=== PATIENT | male | born 1950 | race Caucasian/White ===

== ENCOUNTER → 2018-08-18 10:50 | Outpatient (CLI) | payer MEDICARE, OTHER, SELFPAY ==
[2018-08-18 12:57] LABS: Prolactin 45.6 ng/mL (3.7-17.9)
[2018-08-18 13:11] LABS: Thyroid Stimulating Hormone 1.35 uIU/mL (0.47-4.68)
== END ==
PROVIDERS: Family Provider Family Medicine; PCP Family Medicine; Visit Provider Internal Medicine Endocrinology, Diabetes & Metabolism
DX: E22.1 Hyperprolactinemia (principal); E03.9 Hypothyroidism, unspecified
CPT/HCPCS: 36415; 84146; 84443

== ENCOUNTER → 2019-04-03 15:42 | Outpatient (CLI) | payer MEDICARE, OTHER, SELFPAY ==
[2019-04-03 16:41] LABS: Prolactin 38.9 ng/mL (3.7-17.9)
[2019-04-03 16:55] LABS: Thyroid Stimulating Hormone 1.73 uIU/mL (0.47-4.68)
== END ==
PROVIDERS: Family Provider Family Medicine; PCP Family Medicine; Visit Provider Internal Medicine Endocrinology, Diabetes & Metabolism
DX: D35.2 Benign neoplasm of pituitary gland (principal); E22.1 Hyperprolactinemia; E03.9 Hypothyroidism, unspecified
CPT/HCPCS: 36415; 84146; 84443

== ENCOUNTER → 2019-06-29 09:25 | Outpatient (CLI) | payer MEDICARE, OTHER, SELFPAY ==
[2019-06-29 12:07] LABS: Add Manual Diff / Slide Review NO; Basophils Absolute Auto 0 /uL (0-100); Basophils Percent Auto 0.5 % (0-2); Eosinophils Absolute Auto 200 /uL (0-450); Hematocrit 44.6 % (41-53); Hemoglobin 15.1 g/dL (13.5-17.5); Lymphocytes Absolute Auto 1300 /uL (1100-4500); Lymphocytes Percent Auto 20.5 % (25-40); Mean Corpuscular HGB Conc 33.8 % (30-36); Mean Corpuscular Hemoglobin 30.4 PG (26-34); Mean Corpuscular Volume 89.9 fL (80-100); Monocytes Absolute Auto 400 /uL (0-900); Monocytes Percent Auto 6.5 % (3-14); Neutrophils Absolute Auto 4400 /uL (1500-7000); Neutrophils Percent Auto 69.5 % (50-75); Platelet Count 154 X10^3/uL (150-400); Red Blood Cell Count 4.97 X10^6/uL (4.5-5.9); Red Cell Distribution Width 13.1 % (11.6-14.8); White Blood Cell Count 6.3 X10^3/uL (4.5-11.0)
[2019-06-29 12:50] LABS: Alanine Aminotransferase 22 IU/L (21-72); Albumin 4.4 g/dL (3.5-5.0); Albumin Globulin Ratio 1.6 (1.0-2.8); Alkaline Phosphatase 37 U/L (38-126); Aspartate Aminotransferase 25 IU/L (17-59); Bilirubin Total 0.5 mg/dL (0.2-1.3); Blood Urea Nitrogen 17 mg/dL (9-20); Calcium 9.5 mg/dL (8.4-10.2); Carbon Dioxide 30 mmol/L (22-32); Chloride 104 mmol/L (98-107); Cholesterol 153 mg/dL (140-199); Estimated Glomerular Filt Rate > 60.0 mL/min (>60); Globulin 2.8 g/dL (1.7-4.1); Glucose 96 mg/dL (80-110); HDL Cholesterol 35 mg/dL (40-60); LDL Cholesterol Calculated 94 mg/dL (<100); Potassium 4.6 mmol/L (3.4-5.1); Sodium 141 mmol/L (137-145); Total Protein 7.2 g/dL (6.3-8.2); Triglycerides 121 mg/dL (35-150)
[2019-06-29 13:08] LABS: TSH w/ Reflex to FT4 2.26 uIU/mL (0.47-4.68)
[2019-06-29 13:24] LABS: HEMOLYSIS < 15 (0-50); Prostate Specific Antigen Scrn 0.447 ng/mL (0.1-4.0)
== END ==
PROVIDERS: PCP Family Medicine; Visit Provider Family Medicine
DX: E03.9 Hypothyroidism, unspecified (principal); E78.2 Mixed hyperlipidemia; Z12.5 Encounter for screening for malignant neoplasm of prostate
CPT/HCPCS: 36415; 80053; 80061; 84443; 85025; G0103

== ENCOUNTER → 2019-09-15 11:07 | Outpatient (CLI) | payer MEDICARE, OTHER, SELFPAY ==
[2019-09-15 12:22] LABS: Prolactin 45.2 ng/mL (3.7-17.9)
[2019-09-15 12:38] LABS: Thyroid Stimulating Hormone 1.68 uIU/mL (0.47-4.68)
== END ==
PROVIDERS: PCP Family Medicine; Visit Provider Internal Medicine Endocrinology, Diabetes & Metabolism
DX: E22.1 Hyperprolactinemia (principal); E03.9 Hypothyroidism, unspecified
CPT/HCPCS: 36415; 84146; 84443

== ENCOUNTER → 2019-09-16 16:03 | Outpatient (CLI) | payer MEDICARE, OTHER, SELFPAY | PROVIDERS: PCP Family Medicine; Visit Provider Physician Assistant | DX: R30.0 Dysuria (principal) | CPT/HCPCS: 87086 ==

== ENCOUNTER → 2020-03-15 09:11 | Outpatient (CLI) | payer MEDICARE, OTHER, SELFPAY ==
--- NOTE | 2020-03-15 09:14 | DI.RAD.S_ITS ---
PROCEDURE: XR LUMBAR SPINE 2-3V INDICATIONS: low back pain TECHNIQUE: 3 views of the lumbar spine were acquired. COMPARISON: None. FINDINGS: Bones: 5 [id number] vertebrae are present. Minor rightward rotoscoliosis. AP alignment is normal. Moderate to marked facet arthropathy from L4-S1 without subluxation, with bony foraminal narrowing.. No vertebral body compression fractures. No suspicious bony lesions. Soft tissues: Overlying bowel gas pattern is normal. No suspicious soft tissue calcifications. IMPRESSION: 1. Facet arthropathy results in probable bony foraminal narrowing at the lower lumbar levels. Consider MRI. Dictated by: Carolyn Mccall M.D. on 03/15/2020 at 10:16 Approved by: Carolyn Mccall M.D. on 03/15/2020 at 10:19
== END ==
PROVIDERS: PCP Family Medicine; Referring Provider Family Medicine; Visit Provider Family Medicine
DX: M47.26 Other spondylosis with radiculopathy, lumbar region (principal); M47.27 Other spondylosis with radiculopathy, lumbosacral region
CPT/HCPCS: 72100

== ENCOUNTER → 2020-04-23 10:21 | Outpatient (CLI) | payer MEDICARE, OTHER, SELFPAY ==
[2020-04-23 12:37] LABS: Prolactin 39.7 ng/mL (3.7-17.9)
[2020-04-23 12:53] LABS: Thyroid Stimulating Hormone 1.22 uIU/mL (0.47-4.68)
== END ==
PROVIDERS: PCP Family Medicine; Referring Provider Internal Medicine Endocrinology, Diabetes & Metabolism; Visit Provider Internal Medicine Endocrinology, Diabetes & Metabolism
DX: E22.1 Hyperprolactinemia (principal); E03.9 Hypothyroidism, unspecified
CPT/HCPCS: 36415; 84146; 84443

== ENCOUNTER → 2020-05-02 11:15 | Outpatient (CLI) | payer MEDICARE, OTHER, SELFPAY ==
--- NOTE | 2020-05-02 11:17 | DI.RAD.S_ITS ---
PROCEDURE: XR HIP W PEL IF DONE LT 2V INDICATIONS: Left hip pain TECHNIQUE: AP pelvis with lateral view(s) of the left hip(s). COMPARISON: None. FINDINGS: Bones: No fracture. Multilevel lumbar spondylosis and facet disease. Moderate right hip joint degeneration. Mild left hip joint degeneration. Soft tissues: The visualized bowel gas pattern is normal. No suspicious soft tissue calcifications. Presumed bilateral pelvic phleboliths. IMPRESSION: Bilateral hip joint degeneration although right slightly greater than left. Lower lumbar spondylosis Dictated by: Hector Velez M.D. on 05/02/2020 at 15:48 Approved by: Hector Velez M.D. on 05/02/2020 at 15:50
== END ==
PROVIDERS: PCP Family Medicine; Referring Provider Family Medicine; Visit Provider Family Medicine
DX: M25.552 Pain in left hip (principal); M16.0 Bilateral primary osteoarthritis of hip; M47.816 Spondylosis without myelopathy or radiculopathy, lumbar region
CPT/HCPCS: 73502

== ENCOUNTER → 2020-05-04 17:26 | Outpatient (CLI) | payer MEDICARE, OTHER, SELFPAY ==
--- NOTE | 2020-05-04 17:29 | DI.MRI.S_ITS ---
PROCEDURE: MR LUMBAR SPINE WO CON INDICATIONS: LBP with L radicular pain TECHNIQUE: Noncontrast sagittal T1 spin echo and T2 fast echo, sagittal STIR, axial T1 and T2 fast spin echo through the lumbar spine. In cases with scoliosis, additional coronal T2 fast spin echo may be performed. COMPARISON: None. FINDINGS: Image quality: Excellent. Alignment and Curvature: There is trace anterolisthesis of L4 on L5. Bone Marrow: Marrow is of normal overall signal. Increased T1 and T2 signal is present within L5 most suggestive of hemangioma. Minimal reactive endplate changes are present at L5-S1. No acute vertebral body compression fractures. Spinal Cord: Conus medullaris terminates at the L1 level. Visualized cord demonstrates normal signal and size. Paraspinous Soft Tissues: No paravertebral masses. Bilateral renal cysts as well as T2 hyperintensity within the liver also suggestive of cyst. Discs: [id number] desiccation is present throughout the lumbar spine most severe at L4-5, L5-S1. L1-L2: No disc bulge, spinal stenosis or foraminal narrowing. L2-L3: Minimal disc bulge without spinal stenosis. Minimal left foraminal narrowing. Mild facet and ligamentum flavum hypertrophy. L3-L4: Minimal disc bulge without spinal stenosis. Moderate bilateral foraminal narrowing with facet and ligamentum flavum hypertrophy. L4-L5: Mild disc bulge without spinal stenosis. Moderate to severe left and moderate right foraminal narrowing with facet and ligamentum flavum hypertrophy. Facet and ligamentum flavum hypertrophy are present. L5-S1: Mild disc bulge including a disc osteophyte right lateral component. Moderate right foraminal narrowing with facet and ligamentum flavum hypertrophy. IMPRESSION: 1. Multilevel degenerative changes. 2. Multilevel foraminal narrowing most notable at L4-5 secondary to facet arthropathy. Dictated by: Heidy Light M.D. on 05/05/2020 at 9:42 Approved by: Heidy Light M.D. on 05/05/2020 at 9:53
== END ==
PROVIDERS: PCP Family Medicine; Referring Provider Family Medicine; Visit Provider Family Medicine
DX: M47.26 Other spondylosis with radiculopathy, lumbar region (principal); M48.061 Spinal stenosis, lumbar region without neurogenic claudication; M48.07 Spinal stenosis, lumbosacral region
CPT/HCPCS: 72148

== ENCOUNTER → 2020-05-09 06:53 | Outpatient (CLI) | payer MEDICARE, OTHER, SELFPAY ==
--- NOTE | 2020-05-09 07:14 | DI.ECHO.S_ITS ---
Echocardiogram Report + + :Name: SIGRID GOODWIN Study Date: 05/09/2020 Height: 71 in : :[facility] Weight: 185 lb : : Gender: Male BSA: 2.0 m2 : :: 1950 Age: 69 yrs BP: 128/80 mmHg: :Reason For Study: MITRAL INSUFFICIENCY : :Ordering Physician: Dr. Crum : :Irena Performed By: Kristi Duenas : :Referring: MARY YUN : + + Interpretation Summary Normal left ventricle size with ejection fraction 60-65%. Mildly dilated left atrium. Mild mitral regurgitation. Comparison is made with the echocardiogram of 08/20/2017, there has been no significant change. Procedure: A two-dimensional transthoracic echocardiogram with color flow and Doppler was performed. The study quality was technically adequate. Comparison is made with the echocardiogram of 08/20/2017. The patient was in sinus bradycardia with heart rates between 52-55 bpm during the exam. Left Ventricle: The left ventricle is normal in size and wall thickness. The ejection fraction is estimated to be 60-65%. There are no focal wall motion abnormalities. Diastolic parameters suggest probable normal left ventricular diastolic function and normal filling pressures. Right Ventricle: The right ventricle is normal in size and function. Atria: The left atrium is mildly dilated. Right atrial size is normal. There is no Doppler evidence for an interatrial shunt. Mitral Valve: The mitral valve is normal in structure and function. There is mild mitral regurgitation. Aortic Valve: The aortic valve is trileaflet. The aortic valve opens well. There is no aortic valve stenosis. There is trace aortic regurgitation. Tricuspid Valve: The tricuspid valve is normal in structure and function. There is trace tricuspid regurgitation. The right ventricular systolic pressure is estimated to be at least 29 mmHg based on an estimated right atrial pressure of 3 mm Hg. Pulmonic Valve: The pulmonic valve leaflets are thin and pliable; valve motion is normal. There is a trace or physiologic amount of pulmonic regurgitation. Great Vessels: The aortic root is normal size. The dimensions of the ascending aorta are normal. The IVC is of normal diameter and collapses greater than 50% with a sniff. This suggests a low right atrial pressure of 3 mm Hg. Pericardium/ Pleura There is no pericardial effusion. There is no pleural effusion. MMode/2D Measurements & Calculations LVIDd: 5.2 cm LVOT diam: 2.0 cm LVIDs: 3.3 cm Ao root diam: 2.9 cm FS: 35.7 % asc Aorta Diam: 3.3 cm EPSS: 0.41 cm Ao Arch Diam (Prox Trans): 3.2 cm IVSd: 1.0 cm LVPWd: 1.2 cm LV moulton. diameter/BSA (cm/m^2): 2.5 LV sys. diameter/BSA (cm/m^2): 1.6 LA A2 area: 23.9 cm2 RA long axis: 5.6 cm LA A4 area: 21.7 cm2 RA area: 19.6 cm2 LA length (vol): 5.5 cm RA vol: 58.3 ml LA vol: 80.5 ml RA : 28.6 ml/m2 LA vol index: 39.4 ml/m2 IVC diam: 1.1 cm RVD1 (basal): 3.2 cm TAPSE: 2.6 cm Doppler Measurements & Calculations Ao V2 max: 127.1 cm/sec LVOT Max Nate: 120.7 cm/sec Ao V2 mean: 78.4 cm/sec LV V1 max P.8 mmHg Ao max P.5 mmHg LV V1 VTI: 28.4 cm Ao mean P.9 mmHg SHABBIR(I,D): 3.4 cm2 Ao V2 VTI: 27.4 cm SHABBIR(V,D): 3.1 cm2 sev ratio: 1.0 SHABBIR indexed to BSA (cm^2/m^2): 1.7 MV E max nate: 55.5 cm/sec TR max nate: 253.3 cm/sec MV A max nate: 48.8 cm/sec TR max P.7 mmHg MV E/A: 1.1 PA V2 max: 93.1 cm/sec Med Peak E' Nate: 8.9 cm/sec PA V2 mean: 65.6 cm/sec E/E' med: 6.2 PA mean P.9 mmHg Lat Peak E' Nate: 8.3 cm/sec PA pr(Accel): 27.6 mmHg E/E' lat: 6.7 E/e' average: 6.4 MV dec time: 0.26 sec SV(LVOT): 93.1 ml Electronically signed by: Sebastián Redding on Reading Physician:05/09/2020 09:53 AM
== END ==
PROVIDERS: PCP Family Medicine; Referring Provider Internal Medicine Endocrinology, Diabetes & Metabolism; Visit Provider Internal Medicine Endocrinology, Diabetes & Metabolism
DX: I34.0 Nonrheumatic mitral (valve) insufficiency (principal)
CPT/HCPCS: 93306

== ENCOUNTER → 2020-06-24 08:36 | Outpatient (CLI) | payer MEDICARE, OTHER, SELFPAY ==
[2020-06-24 09:50] LABS: Add Manual Diff / Slide Review NO; Basophils Absolute Auto 0 /uL (0-100); Basophils Percent Auto 0.2 % (0-2); Eosinophils Absolute Auto 200 /uL (0-450); Eosinophils Percent Auto 2.4 % (2-4); Hemoglobin 14.9 g/dL (13.5-17.5); Lymphocytes Absolute Auto 1500 /uL (1100-4500); Lymphocytes Percent Auto 22.9 % (25-40); Mean Corpuscular HGB Conc 33.9 % (30-36); Mean Corpuscular Hemoglobin 30.5 PG (26-34); Mean Corpuscular Volume 89.8 fL (80-100); Monocytes Absolute Auto 500 /uL (0-900); Monocytes Percent Auto 8.1 % (3-14); Neutrophils Absolute Auto 4300 /uL (1500-7000); Neutrophils Percent Auto 66.4 % (50-75); Platelet Count 191 X10^3/uL (150-400); Red Cell Distribution Width 13.4 % (11.6-14.8); White Blood Cell Count 6.4 X10^3/uL (4.5-11.0)
[2020-06-24 10:15] LABS: Alanine Aminotransferase 21 IU/L (<50); Albumin 4.2 g/dL (3.5-5.0); Albumin Globulin Ratio 1.6 (1.0-2.8); Alkaline Phosphatase 34 U/L (38-126); Aspartate Aminotransferase 22 IU/L (17-59); BUN Creatinine Ratio 21.8 (6-22); Bilirubin Total 0.6 mg/dL (0.2-1.3); Blood Urea Nitrogen 19 mg/dL (9-20); Calcium 9.3 mg/dL (8.4-10.2); Carbon Dioxide 28 mmol/L (22-32); Chloride 107 mmol/L (98-107); Cholesterol 140 mg/dL (140-199); Estimated Glomerular Filt Rate > 60.0 mL/min (>60); Globulin 2.7 g/dL (1.7-4.1); Glucose 106 mg/dL (80-110); HDL Cholesterol 43 mg/dL (40-60); HEMOLYSIS < 15 (0-50); LDL Cholesterol Calculated 82 mg/dL (<100); Potassium 4.2 mmol/L (3.4-5.1); Sodium 139 mmol/L (137-145); Total Protein 6.9 g/dL (6.3-8.2); Triglycerides 76 mg/dL (35-150)
== END ==
PROVIDERS: PCP Family Medicine; Referring Provider Family Medicine; Visit Provider Family Medicine
DX: F34.1 Dysthymic disorder (principal)
CPT/HCPCS: 36415; 80053; 80061; 85025

== ENCOUNTER → 2021-06-12 09:48 | Outpatient (CLI) | payer MEDICARE, OTHER, SELFPAY ==
[2021-06-12 12:32] LABS: Prolactin 47.8 ng/mL (3.7-17.9)
[2021-06-12 12:39] LABS: Thyroid Stimulating Hormone 0.532 uIU/mL (0.47-4.68)
== END ==
PROVIDERS: PCP Family Medicine; Referring Provider Internal Medicine Endocrinology, Diabetes & Metabolism; Visit Provider Internal Medicine Endocrinology, Diabetes & Metabolism
DX: E22.1 Hyperprolactinemia (principal); E03.9 Hypothyroidism, unspecified
CPT/HCPCS: 36415; 84146; 84443

== ENCOUNTER → 2021-08-08 07:42 | Outpatient (CLI) | payer MEDICARE, OTHER, SELFPAY ==
[2021-08-08 08:29] LABS: Add Manual Diff / Slide Review NO; Basophils Absolute Auto 0 /uL (0-100); Basophils Percent Auto 0.2 % (0-2); Eosinophils Absolute Auto 300 /uL (0-450); Eosinophils Percent Auto 4.3 % (2-4); Hematocrit 42.2 % (41-53); Hemoglobin 14.5 g/dL (13.5-17.5); Lymphocytes Absolute Auto 1400 /uL (1100-4500); Lymphocytes Percent Auto 20.9 % (25-40); Mean Corpuscular HGB Conc 34.5 % (30-36); Mean Corpuscular Hemoglobin 30.6 PG (26-34); Mean Corpuscular Volume 88.7 fL (80-100); Monocytes Absolute Auto 600 /uL (0-900); Monocytes Percent Auto 8.1 % (3-14); Neutrophils Absolute Auto 4500 /uL (1500-7000); Neutrophils Percent Auto 66.5 % (50-75); Platelet Count 158 X10^3/uL (150-400); Red Blood Cell Count 4.75 X10^6/uL (4.5-5.9); Red Cell Distribution Width 13.8 % (11.6-14.8); White Blood Cell Count 6.8 X10^3/uL (4.5-11.0)
[2021-08-08 08:54] LABS: Alanine Aminotransferase 29 IU/L (<50); Albumin 4.4 g/dL (3.5-5.0); Albumin Globulin Ratio 1.6 (1.0-2.8); Alkaline Phosphatase 36 U/L (38-126); Aspartate Aminotransferase 29 IU/L (17-59); BUN Creatinine Ratio 15.6 (6-22); Blood Urea Nitrogen 14 mg/dL (9-20); Calcium 9.6 mg/dL (8.4-10.2); Carbon Dioxide 28 mmol/L (22-32); Chloride 104 mmol/L (98-107); Cholesterol 179 mg/dL (140-199); Estimated Glomerular Filt Rate > 60.0 mL/min (>60); Globulin 2.8 g/dL (1.7-4.1); Glucose 108 mg/dL (80-110); HDL Cholesterol 53 mg/dL (40-60); HEMOLYSIS < 15 (0-50); LDL Cholesterol Calculated 105 mg/dL (<100); Potassium 4.3 mmol/L (3.4-5.1); Sodium 139 mmol/L (137-145); Total Protein 7.2 g/dL (6.3-8.2); Triglycerides 104 mg/dL (35-150)
[2021-08-08 09:06] LABS: Prolactin 48.8 ng/mL (3.7-17.9)
[2021-08-08 09:20] LABS: Prostate Specific Antigen Scrn 0.471 ng/mL (0.1-4.0)
[2021-08-08 09:27] LABS: Thyroid Stimulating Hormone 2.63 uIU/mL (0.47-4.68)
== END ==
PROVIDERS: PCP Family Medicine; Referring Provider Family Medicine; Visit Provider Family Medicine
DX: D35.2 Benign neoplasm of pituitary gland (principal); E78.2 Mixed hyperlipidemia; Z12.5 Encounter for screening for malignant neoplasm of prostate; E03.9 Hypothyroidism, unspecified
CPT/HCPCS: 36415; 80053; 80061; 84146; 84443; 85025; G0103

== ENCOUNTER → 2021-11-24 10:38 | Outpatient (CLI) | payer MEDICARE, OTHER, SELFPAY ==
--- NOTE | 2021-11-24 10:39 | DI.RAD.S_ITS ---
PROCEDURE: XR RIBS LT MIN 3V W CXR1V INDICATIONS: rib trauma TECHNIQUE: 3 views of the left ribs were acquired, along with a single view chest. COMPARISON: None. FINDINGS: Surgical changes and devices: None. Bones and chest wall: No fractures or dislocations. No suspicious bony lesions. Overlying soft tissues appear unremarkable. Lungs and pleura: No pleural effusions or pneumothorax. Lungs appear clear. Mediastinum: Mediastinal contours appear normal. Heart size is normal. IMPRESSION: No visualized acute fracture or dislocation. However, if clinical concern and/or pain persist, short interval imaging followup in 7-10 days is recommended, as occult injury cannot be definitively excluded. Dictated by: Heidy Light M.D. on 11/24/2021 at 11:01 Approved by: Heidy Light M.D. on 11/24/2021 at 11:02
== END ==
PROVIDERS: PCP Family Medicine; Referring Provider Nurse Practitioner Family; Visit Provider Nurse Practitioner Family
DX: R07.81 Pleurodynia (principal)
CPT/HCPCS: 71101

== ENCOUNTER → 2022-01-16 09:20 | Outpatient (CLI) | payer MEDICARE, OTHER, SELFPAY ==
[2022-01-16 11:18] LABS: Prolactin 54.2 ng/mL (3.7-17.9)
[2022-01-16 12:24] LABS: Thyroid Stimulating Hormone 0.681 uIU/mL (0.47-4.68)
== END ==
PROVIDERS: PCP Family Medicine; Referring Provider Internal Medicine Endocrinology, Diabetes & Metabolism; Visit Provider Internal Medicine Endocrinology, Diabetes & Metabolism
DX: E03.9 Hypothyroidism, unspecified (principal); D35.2 Benign neoplasm of pituitary gland; E22.1 Hyperprolactinemia
CPT/HCPCS: 36415; 84146; 84443

== ENCOUNTER → 2022-06-12 08:55 | Outpatient (CLI) | payer MEDICARE, OTHER, SELFPAY ==
--- NOTE | 2022-06-12 08:57 | DI.RAD.S_ITS ---
PROCEDURE: XR KNEE LT 3V INDICATIONS: knee pain TECHNIQUE: 3 views of the knee were acquired. COMPARISON: None. FINDINGS: Bones: No fractures or dislocations. No suspicious bony lesions. Soft tissues: Moderate joint effusion. No suspicious soft tissue calcifications. IMPRESSION: Moderate effusion. No visualized acute fracture or dislocation. However, if clinical concern and/or pain persist, short interval imaging followup in 7-10 days is recommended, as occult injury cannot be definitively excluded. Dictated by: Heidy Light M.D. on 06/12/2022 at 9:22 Approved by: Heidy Light M.D. on 06/12/2022 at 9:22
== END ==
PROVIDERS: PCP Family Medicine; Referring Provider Student in an Organized Health Care Education/Training Program; Visit Provider Student in an Organized Health Care Education/Training Program
DX: M25.562 Pain in left knee (principal); M25.462 Effusion, left knee
CPT/HCPCS: 73562

== ENCOUNTER → 2022-07-19 14:49 | Outpatient (CLI) | payer MEDICARE, OTHER, SELFPAY ==
[2022-07-19 18:10] LABS: Prolactin 59.4 ng/mL (3.7-17.9)
[2022-07-19 18:17] LABS: Thyroid Stimulating Hormone 2.22 uIU/mL (0.47-4.68)
== END ==
PROVIDERS: PCP Family Medicine; Referring Provider Internal Medicine Endocrinology, Diabetes & Metabolism; Visit Provider Internal Medicine Endocrinology, Diabetes & Metabolism
DX: D35.2 Benign neoplasm of pituitary gland (principal); E03.9 Hypothyroidism, unspecified
CPT/HCPCS: 36415; 84146; 84443

== ENCOUNTER → 2022-07-21 09:34 | Outpatient (CLI) | payer MEDICARE, OTHER, SELFPAY ==
[2022-07-21 10:23] LABS: Influenza A - CEPHEID Flu A NEGATIVE (NEGATIVE); Influenza B - CEPHEID Flu B NEGATIVE (NEGATIVE); Respiratory Syncytial Virus Negative (Negative)
[2022-07-21 10:24] LABS: COVID-19 CEPHEID 4-PLEX PCR Negative (Negative)
== END ==
PROVIDERS: PCP Family Medicine; Visit Provider Physician Assistant
DX: J02.9 Acute pharyngitis, unspecified (principal)
CPT/HCPCS: 0241U

== ENCOUNTER → 2022-08-08 12:11 | Outpatient (CLI) | payer MEDICARE, OTHER, SELFPAY ==
[2022-08-08 12:40] LABS: Add Manual Diff / Slide Review NO; Basophils Absolute Auto 0 /uL (0-100); Basophils Percent Auto 0.2 % (0-2); Eosinophils Absolute Auto 200 /uL (0-450); Eosinophils Percent Auto 2.8 % (2-4); Hematocrit 42.8 % (41-53); Hemoglobin 14.5 g/dL (13.5-17.5); Lymphocytes Absolute Auto 1400 /uL (1100-4500); Lymphocytes Percent Auto 20.4 % (25-40); Mean Corpuscular HGB Conc 33.8 % (30-36); Mean Corpuscular Hemoglobin 29.7 PG (26-34); Mean Corpuscular Volume 87.8 fL (80-100); Monocytes Absolute Auto 500 /uL (0-900); Monocytes Percent Auto 7.1 % (3-14); Neutrophils Absolute Auto 4600 /uL (1500-7000); Neutrophils Percent Auto 69.5 % (50-75); Platelet Count 166 X10^3/uL (150-400); Red Blood Cell Count 4.87 X10^6/uL (4.5-5.9); Red Cell Distribution Width 13.3 % (11.6-14.8); White Blood Cell Count 6.7 X10^3/uL (4.5-11.0)
[2022-08-08 13:33] LABS: Alanine Aminotransferase 27 IU/L (<50); Albumin 4.4 g/dL (3.5-5.0); Albumin Globulin Ratio 1.4 (1.0-2.8); Alkaline Phosphatase 38 U/L (38-126); Aspartate Aminotransferase 26 IU/L (17-59); Bilirubin Total 0.5 mg/dL (0.2-1.3); Blood Urea Nitrogen 19 mg/dL (9-20); Calcium 9.4 mg/dL (8.4-10.2); Carbon Dioxide 29 mmol/L (22-32); Chloride 103 mmol/L (98-107); Cholesterol 163 mg/dL (140-199); Estimated Glomerular Filt Rate > 60 mL/min (>60); Globulin 3.1 g/dL (1.7-4.1); Glucose 99 mg/dL (80-110); HDL Cholesterol 38 mg/dL (40-60); HEMOLYSIS < 15 (0-50); LDL Cholesterol Calculated 96 mg/dL (<100); Potassium 4.3 mmol/L (3.4-5.1); Sodium 141 mmol/L (137-145); Total Protein 7.5 g/dL (6.3-8.2); Triglycerides 143 mg/dL (35-150)
[2022-08-08 14:03] LABS: Thyroid Stimulating Hormone 1.15 uIU/mL (0.47-4.68)
== END ==
PROVIDERS: PCP Family Medicine; Referring Provider Family Medicine; Visit Provider Family Medicine
DX: E03.9 Hypothyroidism, unspecified (principal); E78.2 Mixed hyperlipidemia; G47.33 Obstructive sleep apnea (adult) (pediatric); Z79.899 Other long term (current) drug therapy
CPT/HCPCS: 36415; 80053; 80061; 84443; 85025

== ENCOUNTER → 2023-03-07 17:07 | Outpatient (CLI) | payer MEDICARE, OTHER, SELFPAY ==
--- NOTE | 2023-03-07 | DI.RAD.S_ITS ---
PROCEDURE: XR FINGER LT MIN 2V INDICATIONS: pain of left hand TECHNIQUE: AP hand, 2 views of the 5th finger(s) acquired. COMPARISON: [facility], , FINGER LT, 07/19/2009, 17:10. FINDINGS: Bones: Well corticated ossification along the dorsal aspect of the 5th proximal phalanx head. No acute fracture. Diffuse interphalangeal joint space narrowing with associated osteophytosis. Soft tissues: No suspicious soft tissue calcifications. IMPRESSION: Well corticated ossification along the dorsal aspect of the 5th proximal phalanx head. Findings favor a chronic chip fracture over acute injury. Moderate interphalangeal osteoarthritis. Dictated by: Grupo Parekh M.D. on 03/08/2023 at 10:10 Approved by: Grupo Parekh M.D. on 03/08/2023 at 10:12
== END ==
PROVIDERS: PCP Family Medicine; Referring Provider Physician Assistant; Visit Provider Physician Assistant
DX: S69.92XA Unspecified injury of left wrist, hand and finger(s), initial encounter (principal); M19.042 Primary osteoarthritis, left hand; X58.XXXA Exposure to other specified factors, initial encounter
CPT/HCPCS: 73140

== ENCOUNTER → 2023-09-25 07:29 | Outpatient (CLI) | payer MEDICARE, OTHER, SELFPAY ==
[2023-09-25 07:51] LABS: Add Manual Diff / Slide Review NO; Basophils Absolute Auto 100 /uL (0-100); Basophils Percent Auto 0.9 % (0-2); Eosinophils Absolute Auto 200 /uL (0-450); Eosinophils Percent Auto 3.5 % (2-4); Hematocrit 42.4 % (41-53); Hemoglobin 14.4 g/dL (13.5-17.5); Lymphocytes Absolute Auto 1600 /uL (1100-4500); Lymphocytes Percent Auto 22.6 % (25-40); Mean Corpuscular HGB Conc 34.1 % (30-36); Mean Corpuscular Volume 88.1 fL (80-100); Monocytes Absolute Auto 500 /uL (0-900); Monocytes Percent Auto 7.3 % (3-14); Neutrophils Absolute Auto 4600 /uL (1500-7000); Neutrophils Percent Auto 65.7 % (50-75); Platelet Count 180 X10^3/uL (150-400); Red Blood Cell Count 4.81 X10^6/uL (4.5-5.9); Red Cell Distribution Width 13.7 % (11.6-14.8)
[2023-09-25 08:02] LABS: Alanine Aminotransferase 24 IU/L (<50); Albumin 4.1 g/dL (3.5-5.0); Albumin Globulin Ratio 1.4 (1.0-2.8); Alkaline Phosphatase 39 U/L (38-126); Aspartate Aminotransferase 22 IU/L (17-59); BUN Creatinine Ratio 25.3 (6-22); Bilirubin Total 0.6 mg/dL (0.2-1.3); Blood Urea Nitrogen 23 mg/dL (9-20); Calcium 9.5 mg/dL (8.4-10.2); Carbon Dioxide 26 mmol/L (22-32); Chloride 106 mmol/L (98-107); Cholesterol 155 mg/dL (140-199); Estimated Glomerular Filt Rate > 60 mL/min (>60); Globulin 2.9 g/dL (1.7-4.1); Glucose 101 mg/dL (80-110); HDL Cholesterol 39 mg/dL (40-60); HEMOLYSIS < 15 (0-50); LDL Cholesterol Calculated 88 mg/dL (<100); Potassium 4.5 mmol/L (3.4-5.1); Sodium 139 mmol/L (137-145); Triglycerides 138 mg/dL (35-150)
[2023-09-25 08:19] LABS: Prolactin 47.3 ng/mL (3.7-17.9)
[2023-09-25 08:32] LABS: TSH w/ Reflex to FT4 0.32 uIU/mL (0.47-4.68)
[2023-09-25 10:00] LABS: Free T4, Direct Thyroxine 1.01 ng/dL (0.78-2.19)
== END ==
LOC: LAB 07:30
PROVIDERS: PCP Family Medicine; Referring Provider Family Medicine; Visit Provider Family Medicine
DX: E03.9 Hypothyroidism, unspecified (principal); E78.2 Mixed hyperlipidemia; D35.2 Benign neoplasm of pituitary gland
CPT/HCPCS: 36415; 80053; 80061; 84146; 84439; 84443; 85025

== ENCOUNTER → 2024-04-01 10:13 | Outpatient (CLI) | payer MEDICARE, OTHER, SELFPAY ==
--- NOTE | 2024-04-01 10:15 | DI.RAD.S_ITS ---
PROCEDURE: XR HIP W PEL IF DONE DUNIA MIN 4V INDICATIONS: chronic pain TECHNIQUE: AP pelvis with lateral view(s) of both hip(s). COMPARISON: [facility], CR, XR HIP W PEL IF DONE LT 2V, 05/02/2020, 11:12. FINDINGS: Bones: No fractures or dislocations. Pelvic ring appears intact. No lytic or blastic lesions are noted. Osteoarthritic changes are noted in the hips bilaterally with joint space narrowing and sclerosis along the acetabular. This is progressed in the hips bilaterally, particularly on the left when compared to prior study of of May 02, 2020. Soft tissues appear unremarkable. Soft tissues: The visualized bowel gas pattern is normal. No suspicious soft tissue calcifications. IMPRESSION: Moderate osteoarthritis in the hips. Dictated by: Wally Arellano M.D. on 04/01/2024 at 11:24 Approved by: Wally Arellano M.D. on 04/01/2024 at 11:28
== END ==
PROVIDERS: PCP Family Medicine; Referring Provider Family Medicine; Visit Provider Family Medicine
DX: M54.17 Radiculopathy, lumbosacral region (principal); M16.0 Bilateral primary osteoarthritis of hip
CPT/HCPCS: 73522

== ENCOUNTER → 2024-04-30 10:53 | Outpatient (CLI) | payer MEDICARE, OTHER, SELFPAY ==
--- NOTE | 2024-04-30 11:48 | EKG_ITS ---
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
[2024-04-30 12:01] LABS: Add Manual Diff / Slide Review NO; Basophils Absolute Auto 0 /uL (0-100); Basophils Percent Auto 0.3 % (0-2); Eosinophils Absolute Auto 200 /uL (0-450); Eosinophils Percent Auto 3.1 % (2-4); Hematocrit 41.4 % (41-53); Hemoglobin 14.4 g/dL (13.5-17.5); Lymphocytes Absolute Auto 1400 /uL (1100-4500); Lymphocytes Percent Auto 22.5 % (25-40); Mean Corpuscular HGB Conc 34.7 % (30-36); Mean Corpuscular Hemoglobin 30.8 PG (26-34); Mean Corpuscular Volume 88.9 fL (80-100); Monocytes Absolute Auto 500 /uL (0-900); Monocytes Percent Auto 7.7 % (3-14); Neutrophils Absolute Auto 4000 /uL (1500-7000); Neutrophils Percent Auto 66.4 % (50-75); Platelet Count 175 X10^3/uL (150-400); Red Blood Cell Count 4.65 X10^6/uL (4.5-5.9); Red Cell Distribution Width 13.4 % (11.6-14.8); White Blood Cell Count 6.1 X10^3/uL (4.5-11.0)
[2024-04-30 13:00] LABS: Albumin 4.3 g/dL (3.5-5.0); BUN Creatinine Ratio 28.4 (6-22); Blood Urea Nitrogen 25 mg/dL (9-20); Calcium 9.6 mg/dL (8.4-10.2); Carbon Dioxide 25 mmol/L (22-32); Chloride 103 mmol/L (98-107); Estimated Glomerular Filt Rate > 60 mL/min (>60); Glucose 102 mg/dL (80-110); HEMOLYSIS < 15 (0-50); Sodium 137 mmol/L (137-145)
[2024-04-30 13:04] LABS: Hemoglobin A1C% w Est Avg Glu 5.3 % (4.0-6.0)
[2024-04-30 14:47] LABS: Vitamin D 25 Hydroxy (D3) 31.6 ng/mL (30.0-100.0)
== END ==
PROVIDERS: PCP Family Medicine; Referring Provider Orthopaedic Surgery Adult Reconstructive Orthopaedic Surgery; Visit Provider Orthopaedic Surgery Adult Reconstructive Orthopaedic Surgery
DX: Z01.818 Encounter for other preprocedural examination (principal); R73.9 Hyperglycemia, unspecified; E55.9 Vitamin D deficiency, unspecified; R77.0 Abnormality of albumin; Z01.812 Encounter for preprocedural laboratory examination
CPT/HCPCS: 36415; 80048; 82040; 82306; 83036; 84134; 85025; 93005

== ENCOUNTER 2024-06-26 09:00 | Day surgery (SDC) | payer MEDICARE, OTHER, SELFPAY ==
[2024-06-19 08:18] VITALS: BMI 27.9
[2024-06-26] VITALS (14 sets, daily range): BP systolic 103–143; BP diastolic 41–85; PULSE 66–86; RESP 13–19; TEMP 36.4–36.8; O2SAT 94–98; BMI 27.9
--- NOTE | 2024-06-26 | DI.RAD.S_ITS ---
PROCEDURE: XR HIP W PEL IF DONE LT 2V INDICATIONS: TOTAL HIP arthroplasty TECHNIQUE: Skopic spot views of the left hip were acquired. COMPARISON: [facility], [place], XR HIP W PEL IF DONE DUNIA 3TO4V, 04/01/2024, 10:15. FINDINGS / IMPRESSION: Five fluoroscopic spot views are submitted for left hip arthroplasty. Fluoroscopic dosimetry is not delineated. Dictated by: Tashi Salamanca M.D. on 06/29/2024 at 10:35 Approved by: Tashi Salamanca M.D. on 06/29/2024 at 10:37
--- NOTE | 2024-06-26 06:00 | DI.RAD.S_ITS ---
PROCEDURE: XR HIP W PEL IF DONE LT 2V INDICATIONS: calvin TECHNIQUE: 2 view(s) of the hip acquired. COMPARISON: [facility], [place], XR HIP W PEL IF DONE LT 2V, 06/26/2024, 11:59. [facility], [place], XR HIP W PEL IF DONE DUNIA 3TO4V, 04/01/2024, 10:15. FINDINGS: Bones: Patient is status post left hip arthroplasty, with hardware components in expected positions. The hip joint appears congruent. The visualized bony structures appear intact. Soft tissues: Overlying postoperative changes are noted. No suspicious soft tissue densities. IMPRESSION: Expected post-operative appearance of a hip arthroplasty. Dictated by: Bean Holden M.D. on 06/26/2024 at 13:10 Approved by: Bean Holden M.D. on 06/26/2024 at 13:10
[2024-06-26] MEDS: LACTATED RINGERS 1,000 ML 42 ML IV ×2 (09:36→12:59)
[2024-06-26] MEDS: ACETAMINOPHEN 325 MG TABLET 975 MG PO (09:37)
--- NOTE | 2024-06-26 10:22 | PM.PREOP ---
Pre-operative Note Interval Note History & Physical reviewed/Exam performed by Physician: Yes Changes to H&P: No
[2024-06-26] MEDS: CEFAZOLIN 2 GM/100 ML PREMIX 100 ML IV ×2 (10:36→18:25)
[2024-06-26] MEDS: TRANEXAMIC ACID 1,000 MG VIAL 2000 MG INJ ×2 (10:50→12:06)
--- NOTE | 2024-06-26 11:15 | SUR.OPER ---
Patient supine on padded [place] table, one arm on padded arm board at <90, other arm padded and secured with tape across patient's chest, both legs secured in padded traction boots and positioned per surgeon, padded post at patient's groin, pressure points checked and padded.
[2024-06-26] MEDS: ROPIVACAINE/EPI/CLONIDINE/KET 50 ML SYRINGE INJ (11:23)
--- NOTE | 2024-06-26 12:09 | PM.OP.1 ---
Operative Date/Time/Diagnoses Date of procedure: 06/26/24 Pre-op diagnosis: Left hip osteoarthritis Post-op diagnosis: same Procedure & Clinicians Procedure: Left total hip arthroplasty Same procedure as scheduled: Yes Surgeon: Chavez Pool [employer]: [employer] Anesthesia Type: Spinal, Sedation and Local Operative Notes Estimated Blood Loss (mL): 250 Procedure in detail: Left Uncemented Direct Anterior Depuy Total Hip Arthroplasty: Implants: Timpson Gription size 58 cup? Actis femoral stem size 7 high offset? 36 mm +5 ceramic femoral head? Procedure Summary: This 74-year-old male patient had a relatively normal body habitus and accessory releases of the conjoined tendon were not necessary to achieve femoral exposure. He received the templated implants during his initial trialing and this was appropriate on all parameters so the final templated implants were used for his final construct. Procedure in Detail: This patient was seen preoperatively and evaluated for hip pain which was refractory to numerous nonoperative treatment modalities. Their hip pain correlated with radiographic changes demonstrating significant degeneration in the hip joint. The risks and benefits of continued nonoperative management versus operative management were discussed at length and all of the patient?s questions were answered. Additional educational materials providing further details beyond our discussion in clinic were provided via a publicly available patient education video which included the incidence of medical complications associated with total hip arthroplasty, reasons for revision following total hip arthroplasty, and patient satisfaction rates following total hip arthroplasty. That video can be accessed at [email or web address] . With this understanding of the risks inherent to the procedure, the patient elected to move forward with operative management. Following preoperative optimization, the patient was scheduled for surgery. The patient was met in the preoperative holding area the day of the procedure and all questions were answered. The patient?s nares were swabbed with betadine in order to decolonize them from MRSA. Informed consent was signed and the left limb was marked with indelible ink.? The patient was brought back to the operating room where anesthesia was induced. The patient was transferred to the [place] table and all bony prominences were padded. The operative site was prepped and draped in the usual sterile fashion. Prior to incision, tranexamic acid and cefazolin were administered. Operative templating images were displayed demonstrating the anticipated implant sizes and correct operative extremity. A timeout procedure was performed verifying the patient?s identity, medical comorbidities, allergies, relevant medications, anesthesia type and the surgical plan. All present were in agreement. The assistance of a physician personal injury legal assistant was required for positioning, room setup, soft tissue retraction and wound closure. Without this assistance, the procedure would have been significantly more challenging and time consuming.?? A direct anterior approach to the hip was utilized. This was performed with a longitudinal incision through a Heuter interval. The incision was planned 2 cm distal and 2 cm lateral to the ASIS extending towards the lateral patella, in line with the muscle body of the TFL. Following incision, the subcutaneous tissue was dissected while taking care to avoid injury to the lateral femoral cutaneous nerve. The fascia overlying the TFL was identified by dissecting off the overlying fat and identifying perforating vessels to the TFL. The TFL fascia was incised and dissected away from the medial border of the TFL. A cobra retractor was placed over the superior femoral neck between the abductors and the hip capsule and used to reflect the TFL laterally. A Juncos self-retainer was then placed in the distal aspect of the wound between the TFL and the rectus femoris. This was tensioned to open up the direct anterior interval and the lateral circumflex vessels were identified and coagulated using electrocautery. The floor of the TFL fascia was incised, exposing the pericapsular fat overlying the hip capsule. A second cobra retractor was placed on the inferior femoral neck. A double-bent soft tissue retractor was placed on the anterior wall of the acetabulum and used to tension the reflected head of rectus femoris, which was then released in order to limit soft tissue tension. A capsulotomy was made in the midline of the anterior hip capsule in line with the femoral neck ending at the vastus tubercle. The double-bent retractor was removed in order to limit the amount of time that a soft tissue retractor remained on the anterior wall and protect the femoral nerve. Tag stitches were placed in the superior and inferior leaflets of the hip capsule. An Marcos soft tissue retractor was introduced over the tag stitches and tensioned in the interval between the rectus femoris and the TFL in order to retract and protect those muscles. The cobra retractors were replaced intracapsularly, with one over the superior neck in the pocket created by the base of the greater trochanter and the other on the femoral head. The capsulotomy was extended laterally to the base of the greater trochanter and medially to the lesser trochanter. This required externally rotating the hip. Once the lesser trochanter had been identified, a neck cut was planned according to measurements from preoperative templating. A ruler was cut at the length measured between the superior aspect of the lesser trochanter and the collar of the prosthesis. This line was extended towards the inferior aspect of the lateral cobra retractor to plan a cut which would leave minimal residual femoral neck laterally. The neck was cut at 60 degrees of external rotation along that line. A second cut was performed to remove a large napkin ring and facilitate head extraction. The napkin ring cut and femoral head were removed.?? A broad anterior wall retractor was placed between the labrum and the anterior capsule so that the anterior capsule would prevent capturing and pinching the femoral nerve anteriorly. An additional retractor was placed on the posterior wall. External rotation and traction were applied through the [place] table so that the cut surface of the femoral neck would not restrict access to the acetabulum. The labrum was excised sharply and the pulvinar was excised with electrocautery to limit bleeding from branches of the obturator artery. Acetabular reamers were selected based on preoperative templating and measurements of the excised femoral head. These were introduced into the acetabulum. Fluoroscopy was utilized to replicate a standing AP pelvis radiograph by centering over the pelvis, rotating until there was appropriate symmetry between the obturator foramen, and introducing caudal tilt to match the position of the pubic symphysis relative to the sacrococcygeal junction according to the patient?s anatomy. Fluoroscopy was utilized to ensure appropriate reaming depth. Once satisfied with the reaming depth corresponding to the preoperative template and the pinch fit between the columns, an appropriate sized acetabular cup was selected which would provide 1 mm of press-fit. This cup was introduced and manipulated until appropriate abduction and anteversion angles were obtained with careful attention to appropriate abduction and anteversion angles as evaluated by the position of the cup relative to the anterior and posterior edward of the acetabulum and the AP fluoroscopy which recreated the patient?s standing radiograph. The cup was impacted into place. Peripheral osteophytes were removed. The acetabular liner was then placed with care to ensure locking of the locking mechanism.? Attention was then turned to the femur. All retractors were removed, traction was released, a retractor was placed in the interval between the hip capsule and the gluteus minimus, and the hip was externally rotated to 90 degrees. Traction was applied through the [place] table to tension the lateral capsule and this was released using electrocautery. Traction was released and a [place] hook was placed posteriorly around the proximal femur at the level of the vastus ridge. The table height was lowered in order to restrict the tension on the anterior structures during hip hyperextension to limit the risk of femoral nerve palsy. With traction off and the hip at 90 degrees of external rotation, the hip was hyperextended and adducted while manually elevating the femur away from the acetabulum with the [place] hook to ensure it would not be caught behind the greater trochanter. An asymmetric retractor was placed over the calcar and a broad double-pronged retractor was placed over the greater trochanter. The tag stitch capturing the lateral leaflet of the capsule was moved to the medial side, leaving the conjoined and piriformis tendons isolated in the face of the greater trochanter. The hip was externally rotated and elevated. A release of the conjoined tendon was not necessary in order to obtain adequate exposure for broaching. The canal was opened with an opening broach and a rasp was used to remove cancellous bone. A rongeur was used to remove the residual lateral bone at the base of the greater trochanter to avoid placing the stem in varus. The femur was then broached to the appropriate sized stem yielding good rotational fit and fill of the canal as well as appropriate version of the stem trial. Neck and head trials were placed, all retractors were removed and the hip was returned to neutral abduction and extension. I then reduced the hip. Initial trialing was performed with a size 7 broach, a high offset neck and a +5 head. I initially manually externally rotated the hip and found no instability. I then locked the hip in 45 degrees of external rotation and dropped it to the floor with traction off which demonstrated no instability. An AP pelvis fluoroscopic image matching the preoperative standing radiograph with both lesser trochanters visible and both hips in 40 degrees of external rotation demonstrated appropriate leg length and offset. AP and lateral hip fluoroscopic images were obtained to evaluate the broach size which demonstrated appropriate canal fill. The hip was dislocated and I returned to the broaching position. Based on my evaluation during initial trialing I planned to place these definitive implants. The definitive stem was placed and the trunnion was cleaned and dried. I placed a ceramic head onto the trunnion and impacted it into place on the Steven taper.?? All retractors were removed and the hip was reduced. A dilute mixture of betadine and peroxide was used to bathe the soft tissues during final fluoroscopic assessment. Appropriate component positioning was confirmed on an AP pelvis radiograph with the operative and nonoperative legs in 40 degrees of external rotation, evaluating leg length and offset. Appropriate stem fill was evaluated on AP and lateral hip radiographs. No fractures were identified on these radiographs. There was no hip instability with maximum (120) external rotation as well as a 45 degree drop test. The hip was copiously irrigated with pulse lavage. The capsule was closed with absorbable interrupted suture. The TFL fascia was closed with barbed suture while carefully protecting the lateral femoral cutaneous nerve from entrapment. A mixture of Ropivacaine, Epinephrine, Clonidine and Toradol was infiltrated throughout the soft tissues. The skin was closed with 2-0 and 3-0 sutures. Surgical glue was applied and a soft dressing was placed.??The sponge, instrument and needle counts were reported as being correct at the end of the case.??No obvious complications occurred. The patient was transferred from the [place] table back to a stretcher. The patient emerged from anesthesia without difficulty and was taken to the PACU in a stable condition.? Plan for aftercare: Anterior hip precautions Weightbearing as tolerated Aspirin 81 twice per day for DVT prophylaxis Anticipate discharge home today Change into normal clothes upon arrival on the hospital floor Mobilize in the halls as much as is logistically possible. If physical therapy is unavailable for mobilization, then patient should mobilize with nursing staff Multimodal pain regimen with no IV opioids ordered Apply ice machine to operative hip. Ensure that sufficient ice is in the chamber for the pad to remain cold Follow up at [facility] in 2 weeks Detailed postoperative instructions available at [email or web address]
[2024-06-26] MEDS: MELOXICAM 7.5 MG TABLET PO (13:03)
--- NOTE | 2024-06-26 13:25 | SUR.PHASEI ---
Bladder scan with less than 80ml.
[2024-06-26] MEDS: IBUPROFEN 600 MG TABLET PO ×2 (14:24→18:40)
[2024-06-26] MEDS: ACETAMINOPHEN 325 MG TABLET 650 MG PO ×2 (14:24→18:40)
[2024-06-26] MEDS: LACTATED RINGERS 1,000 ML 100 ML IV (14:25)
--- NOTE | 2024-06-26 17:22 | PT.IIE ---
Current Diagnoses Unilateral primary osteoarthritis, left hip (06/26/24) Surgery Performed Operation Date: 06/26/24 10:45 Actual Procedures p Total Hip Arthroplasty/Anterior Approach(Left) - Chavez Pool MD Surgical History (Last Updated 06/19/24 @ 09:07 by Meg Rivers, FLACA) Status post eye surgery (1979) Status post eye surgery Medical History (Last Updated 05/05/24 @ 09:56 by Rose Weinberg PA-C) Acquired hypothyroidism Chronic major depressive disorder COVID Facet arthropathy, lumbar Insomnia Lumbosacral radiculopathy at L5 Mixed hyperlipidemia Obstructive sleep apnea of adult Pituitary adenoma (11/10/14) Physical Therapy Inpatient Evaluation/Re-Eval M1 PT/OT-IP Prior Functional Status Start: 06/26/24 18:34 Freq: NEEDED Status: Active Protocol: Document 06/26/24 17:22 AB (Rec: 06/26/24 18:46 AB [id number]) Medical Review Prior Functional Status Medical History Reviewed Yes Communication able to make needs known Mobility and Gait pt stated that he was independent with all mobilities and ambulation without AD Social History Household Members spouse Living Arrangements House Number of Floors (Floors) Two Floors Number of Stairs To Enter/Railing? pt stays on the main level of the house ramp to enter Home Environment High Toilet,Walk in Shower, Ramp Home Equipment Front Wheel Walker,Grab Bars In Shower Additional Social History Comment pt has a toilet safety frame M2 PT-IP Current Condition Start: 06/26/24 18:34 Freq: NEEDED Status: Active Protocol: Document 06/26/24 17:22 AB (Rec: 06/26/24 18:46 AB [id number]) Physical Therapy Current Condition Current Condition Evaluation Date 06/26/24 Treatment Diagnosis s/p L UMAIR anterior; difficulty in walking Onset Date 06/26/24 M3 PT-IP Subjective Start: 06/26/24 18:34 Freq: NEEDED Status: Active Protocol: Document 06/26/24 17:22 AB (Rec: 06/26/24 18:46 AB [id number]) Subjective Physical Therapy Visit Type Type Initial Evaluation Visit Start Time 17:22 Visit Stop Time 18:30 Number of PRESS ROOM SUPERVISOR Visits 67 Physical Therapy Visit Comments Patient Comments agreeable to do PT Therapy Pain Assessment Pain When Pain Assessed During Mobility Pain Present Pain Present Pain Reported Location Left Hip Intensity 5 Scale Used Numeric (0 - 10) Pain Management Techniques Apply Cold,Distraction, Modification of Treatment,Re- positioning,Timing of Activity with Medications M4 PT-IP Mobility and Gait Start: 06/26/24 18:34 Freq: NEEDED Status: Active Protocol: Document 06/26/24 17:22 AB (Rec: 06/26/24 18:46 AB [id number]) PT-Bed Mobility Assessment Supine to Sit Supine to Sit Standby Assistance PT-Transfer Assessment Sit to and From Stand Sit to and from Stand Contact Guard Assistance,1 Person Assistance,Use of Upper Extremities Equipment Transfer Assistive Device Gait Belt,Front Wheeled Walker Orthotic/Prosthetic Devices or Brace: No Transfers Transfer Destination Chair Transfer Technique ambulated Transfer Ability Level of Assist Contact Guard Assistance, Minimal Assistance,1 Person Assistance,Use of Upper Extremities Comments Mobility Comments pt supine in bed and spouse in room. obtained PLOF and home set up from pt and spouse. post-op folder provided and reviewed contents. HEP reviewed. educated pt and spouse regarding pt's L anterior hip precautions. BP in supine: 112/62 O2 sat 96% LA: 69 completed supine to sit SBA. no c/o dizziness. BP: 125/72. pt concerned about incontinence at this time and assisted with brief management . completed sit to stand CGA and was able to stand CGA using FWW for support while assisted with brief. pt ambulated ~ 15 ft using fWW CGA to min A and cues for safety and precautions. pt sat on the chair. caregiver training conducted. educated spouse on how to use safety belt and how to assist pt. spouse was able to put safety belt on pt. spouse assisted pt with sit to stand from the chair and also for ambulation in room using FWW ~ 30 ft CGA. pt sat back on the chair. positioned pt on the chair. call light and table placed within reach. ice pack provided. educated pt and spouse regarding car transfer techniques. left pt with spouse and nurse in room. Gait Assessment Gait Gait Assistance Required: Contact Guard Assist,Minimum Assistance Distance (Feet) 30 Able to Maintain Weight Bearing Status Yes During Gait Assistive Devices Assistive Device Gait Belt Orthotic/Prosthetic Devices or Brace: Yes Gait Deviations General Gait Pattern Antalgic,Decreased Feet Clearance Factors Limiting Gait Function Factors Limiting Gait Function Decreased Activity Tolerance, Decreased Strength,Limited Range of Motion,Pain,Poor Balance,Poor Safety Awareness PT-Balance Assessment Sitting Balance and Reactions Static Sitting Balance Ability Normal Dynamic Sitting Balance Ability Good Standing Balance and Reactions Static Standing Balance Ability Fair Dynamic Standing Balance Ability Fair Device Used FWW M5 PT-IP Objective Assessments Start: 06/26/24 18:34 Freq: NEEDED Status: Active Protocol: Document 06/26/24 17:22 AB (Rec: 06/26/24 18:46 AB [id number]) Orientation Orientation/Cognition Level of Alertness Alert Orientation Name,Place,Situation Language Function Ability Hard of Hearing Safety Awareness Decreased Safety Awareness Memory Description Short Term Impaired Gross Range of Motion Lower Extremity ROM Assessment Within Functional Limits Strength Lower Extremity Strength Assessment Left Impaired Hip 3-/5 Knee 3+/5 Coordination Assessment Gross Coordination Gross Coordination WNL Sensation Assessment Sensation Gross Sensation WNL Muscle Tone Muscle Tone WNL Yes M6 PT-IP Treatment Start: 06/26/24 18:34 Freq: NEEDED Status: Active Protocol: Document 06/26/24 17:22 AB (Rec: 06/26/24 18:46 AB [id number]) Physical Therapy Treatment Exercises Exercises Heel Slides Education Education Provided Precautions,Weight Bearing Status,Post-Op Packet,Safety M7 PT-IP Assessment and Plan Start: 06/26/24 18:34 Freq: NEEDED Status: Active Protocol: Document 06/26/24 17:22 AB (Rec: 06/26/24 18:46 AB [id number]) PT Summary Assessment and Plan Potential Rehabilitation Potential Good Status of Condition at Evaluation Evolving Summary Impairments Pain,ROM,Strength,Balance, Coordination,Sensation,Tone, Cognition,Bed Mobility, Transfers,Gait,Activity Tolerance Assessment Summary pt is a 74 y/o M s/p L UMAIR anterior approach POD 0. pt has L hip anterior precautions and is WBAT. pt requiring CGA to min A with mobility using FWW. caregiver training conducted and spouse was able to assist pt. pt may go home when medically stable. Goals Bed Mobility Goal Independent Transfer Goal Independent,Front Wheeled Walker Gait Goal Independent,Front Wheel Walker Gait Distance 200 Days to Meet Goals 5 Frequency of Treatment Frequency Of Treatment Twice a Day Treatment Plan Physical Therapy Treatment Plan Bed Mobility Training,Transfer Training,Gait Training, Therapeutic Exercise,Balance Retraining,Post Op Education, Discharge Planning,Hot or Cold Pack,Neuromuscular Re-ed, Coordination Retraining,Manual Therapy Precautions Anterior Hip Precautions No Hip Extension,No Hip External Rotation Weight Bearing Status Weight Bearing Status Weight Bear as Tolerated Allowed Weight Bearing Amount (enter % LLE WBAT or #) (%) Recommendations To Nursing Amount of Assist Needed 1 Person Assist Discharge Recommendations PT Discharge Recommendations Home with Assistance, Outpatient PT Transportation Needs at Discharge Private Vehicle
[2024-06-26] MEDS: polyethylene glycoL 3350 17 GM POWD.PACK PO (21:14)
[2024-06-26] MEDS: ATORVASTATIN 20 MG TABLET PO (21:14)
[2024-06-26] MEDS: DOCUSATE 100 MG CAPSULE PO (21:14)
[2024-06-26] MEDS: ASPIRIN EC 81 MG TABLET PO (21:14)
[2024-06-27] MEDS: ACETAMINOPHEN 325 MG TABLET 650 MG PO ×2 (01:08→08:25)
[2024-06-27] MEDS: IBUPROFEN 600 MG TABLET PO ×2 (01:08→08:26)
--- NOTE | 2024-06-27 01:16 | PC.NURSE ---
Patient complaining of dysuria, urinary frequency, feeling of retention. UA ordered and collected.
[2024-06-27 01:25] LABS: Appearance Urine UA CLEAR; Bilirubin Urine UA NEGATIVE (NEGATIVE); Color Urine UA YELLOW; Glucose Urine UA NEGATIVE (Negative); Ketones Urine UA NEGATIVE (NEGATIVE); Leukocyte Esterase Urine UA NEGATIVE (NEGATIVE); Nitrite Urine UA NEGATIVE (Negative); Occult Blood Urine UA TRACE-INTACT (Negative); Protein Urine UA NEGATIVE (Negative); Urobilinogen Urine UA 0.2 E.U./dL (0.2); pH Urine UA 5.5 (4.5-8.0)
[2024-06-27 01:39] LABS: Bacteria Urine None Seen; Culture Indicated Urine Cult Not Indicated; RBC Urine None Seen (0-5/HPF); Squamous Epithelial Cell Urine None Seen (0-5/HPF); Urine Volume 10mL (spun); WBC Urine None Seen (0-5/HPF)
[2024-06-27 01:43] VITALS: BP 117/55; PULSE 72; RESP 19; TEMP 36.6; O2SAT 98
[2024-06-27] MEDS: CEFAZOLIN 2 GM/100 ML PREMIX 100 ML IV (02:53)
[2024-06-27] MEDS: LEVOTHYROXINE 125 MCG TABLET PO (06:06)
[2024-06-27 06:20] LABS: Hematocrit 33.5 % (41-53); Hemoglobin 11.6 g/dL (13.5-17.5)
[2024-06-27 08:00] VITALS: BP 128/74; PULSE 59; RESP 16; TEMP 36.6; O2SAT 98
[2024-06-27] MEDS: ASPIRIN EC 81 MG TABLET PO (08:25)
[2024-06-27] MEDS: TAMSULOSIN 0.4 MG CAPSULE PO (08:25)
[2024-06-27] MEDS: CHOLECALCIFEROL (VITAMIN D3) 1,000 UNIT TABLET 2000 UNIT PO (08:25)
[2024-06-27] MEDS: DOCUSATE 100 MG CAPSULE PO (08:26)
--- NOTE | 2024-06-27 09:05 | PT.IPTN ---
Current Diagnoses Unilateral primary osteoarthritis, left hip (06/26/24) Surgery Performed Operation Date: 06/26/24 10:45 Actual Procedures p Total Hip Arthroplasty/Anterior Approach(Left) - Chavez Pool MD Physical Therapy Treatment Note M2 PT-IP Current Condition Start: 06/26/24 18:34 Freq: NEEDED Status: Active Protocol: Document 06/26/24 17:22 AB (Rec: 06/26/24 18:46 AB [id number]) Physical Therapy Current Condition Current Condition Evaluation Date 06/26/24 Treatment Diagnosis s/p L UMAIR anterior; difficulty in walking Onset Date 06/26/24 M3 PT-IP Subjective Start: 06/26/24 18:34 Freq: NEEDED Status: Active Protocol: Document 06/27/24 09:31 TS (Rec: 06/27/24 09:36 TS [id number]) Subjective Physical Therapy Visit Type Type Treatment Note Visit Start Time 09:05 Visit Stop Time 09:30 Number of LEAF BINNER Visits 25 Physical Therapy Visit Comments Patient Comments Pt is agreeable to PT. Therapy Pain Assessment Pain When Pain Assessed During Mobility Pain Present Pain Present Pain Reported M4 PT-IP Mobility and Gait Start: 06/26/24 18:34 Freq: NEEDED Status: Active Protocol: Document 06/27/24 09:31 TS (Rec: 06/27/24 09:36 TS [id number]) PT-Transfer Assessment Sit to and From Stand Sit to and from Stand Standby Assistance Equipment Transfer Assistive Device Gait Belt,Front Wheeled Walker Comments Mobility Comments STS from toilet SBA with FWw. He ambulates ~125' SBA with step to gait, tends to int rotate L foot. He performs stairs x3 with cues for sequencing. Pt recalls 0/2 hip precautions, requires further education. Pt was left back int he chair, nursing notified of pt wanting shower. Gait Assessment Gait Gait Assistance Required: Standby Assistance Distance (Feet) 125 Able to Maintain Weight Bearing Status Yes During Gait Assistive Devices Assistive Device Gait Belt,Front Wheeled Walker Gait Deviations General Gait Pattern Antalgic,Decreased Feet Clearance Factors Limiting Gait Function Factors Limiting Gait Function Decreased Activity Tolerance, Decreased Strength,Limited Range of Motion,Pain,Poor Balance,Poor Safety Awareness Stair Climbing Assessment Evaluation Level of Assist On Stairs Contact Guard Assistance,1 Person Assistance Devices Stair Climbing Assistive Devices Left Railing,Right Railing Technique/Endurance Stair Climbing Direction Ascend and Descend Stair Climbing Technique Step to Step Number of Steps Climbed 3 PT-Balance Assessment Sitting Balance and Reactions Static Sitting Balance Ability Normal Dynamic Sitting Balance Ability Good Standing Balance and Reactions Static Standing Balance Ability Fair Dynamic Standing Balance Ability Fair Device Used FWW M5 PT-IP Objective Assessments Start: 06/26/24 18:34 Freq: NEEDED Status: Active Protocol: Document 06/26/24 17:22 AB (Rec: 06/26/24 18:46 AB [id number]) Orientation Orientation/Cognition Level of Alertness Alert Orientation Name,Place,Situation Language Function Ability Hard of Hearing Safety Awareness Decreased Safety Awareness Memory Description Short Term Impaired Gross Range of Motion Lower Extremity ROM Assessment Within Functional Limits Strength Lower Extremity Strength Assessment Left Impaired Hip 3-/5 Knee 3+/5 Coordination Assessment Gross Coordination Gross Coordination WNL Sensation Assessment Sensation Gross Sensation WNL Muscle Tone Muscle Tone WNL Yes M6 PT-IP Treatment Start: 06/26/24 18:34 Freq: NEEDED Status: Active Protocol: Document 06/27/24 09:31 TS (Rec: 06/27/24 09:36 TS [id number]) Physical Therapy Treatment Education Education Provided Precautions,Weight Bearing Status,Post-Op Packet,Safety M7 PT-IP Assessment and Plan Start: 06/26/24 18:34 Freq: NEEDED Status: Active Protocol: Document 06/27/24 09:31 TS (Rec: 06/27/24 09:36 TS [id number]) PT Summary Assessment and Plan Potential Rehabilitation Potential Good Summary Impairments Pain,ROM,Strength,Balance, Coordination,Sensation,Tone, Cognition,Bed Mobility, Transfers,Gait,Activity Tolerance Progress Towards Goals Progressing Toward Goals Assessment Summary Naga is making progress with his mobility. He is SBA for STS with use of FWW. He progressed his gait to ~125' SBA with FWw. He performed stairs x3 with no buckling or LOB. He does have difficulty remembering his precautions, educated sposue and pt. PT is recommending home with assist. Goals Bed Mobility Goal Independent Transfer Goal Independent,Front Wheeled Walker Gait Goal Independent,Front Wheel Walker Gait Distance 200 Days to Meet Goals 5 Frequency of Treatment Frequency Of Treatment Twice a Day Treatment Plan Physical Therapy Treatment Plan Bed Mobility Training,Transfer Training,Gait Training, Therapeutic Exercise,Balance Retraining,Post Op Education, Discharge Planning,Hot or Cold Pack,Neuromuscular Re-ed, Coordination Retraining,Manual Therapy Precautions Anterior Hip Precautions No Hip Extension,No Hip External Rotation Weight Bearing Status Weight Bearing Status Weight Bear as Tolerated Allowed Weight Bearing Amount (enter % LLE WBAT or #) (%) Recommendations To Nursing Amount of Assist Needed Standby Assistance,1 Person Assist Discharge Recommendations PT Discharge Recommendations Home with Assistance, Outpatient PT Transportation Needs at Discharge Private Vehicle
[2024-06-27] MEDS: ESCITALOPRAM 10 MG TABLET 20 MG PO (10:09)
--- NOTE | 2024-06-27 10:17 | P.DS_ITS ---
History of Present Illness History of Present Illness Chief complaint: OPB Narrative: Jesse is a pleasant 74-year-old male who is postop day #1 s/p L UMAIR by Dr. Pool. This morning patient reports he is doing very well, mild pain only. Pain has been controlled with Tylenol and ibuprofen only. Has been up and worked with PT, is ambulating well with a walker. Has urinated on his own several times without issue. Has passed a bowel movement. Denies any numbness or tingling or weakness down his left lower extremity. He lives at home w/ his who is willing and able to aid in his postop care. He has a ramp up to his house and can stay on the ground level while he recovers, has walker at home already. He has his post-op PT appts scheduled already w/ [facility]. Has his post-op pain medications at home already. Feels ready to be d/c to home. Denies fever, chills, chest pain, SOB, nausea, vomiting. Operative Date/Time/Diagnoses Date of procedure: 06/26/24 Pre-op diagnosis: Left hip osteoarthritis Post-op diagnosis: same Procedure & Clinicians Procedure: Left total hip arthroplasty Same procedure as scheduled: Yes Surgeon: Chavez Pool Wound Care Technician: Kymberly Light Anesthesia Type: Spinal, Sedation and Local Operative Notes Estimated Blood Loss (mL): 250 Procedure in detail: Left Uncemented Direct Anterior Depuy Total Hip Arthroplasty: Implants: * [place] Gription size 58 cup? * Actis femoral stem size 7 high offset? * 36 mm +5 ceramic femoral head? Discharge Providers Provider Discharge Date: 06/27/24 Primary care physician: Radames Osborn MD Consults: 06/26/24 06:00 Consult to Anesthesiology Routine Comment: Consulting Provider: Anesthesiologist Reason for consultation: Regional block for post operative pain control 06/26/24 13:37 Consult to Discharge Planning Routine Comment: Consult to Physical Therapy Evaluate & Treat Comment: Physician Instructions: post op UMAIR protocol Discharge provider: Kymberly Ligth PA-C Summary Hospital Course Discharge Diagnosis: stable s/p L UMAIR Hospital Course: Uncomplicated hospital course Exam Vital Signs (past 8 hours): - 06/27/24 08:00 Temperature 97.8 F Pulse Rate 59 L Respiratory Rate 16 Blood Pressure 128/74 Pulse Oximetry 98 Oxygen Flow Rate 0 Oxygen Delivery Method Room Air,Nasal Cannula Oxygen Flow Rate 0 Narrative Exam Narrative: Patient sitting comfortably in bedside chair during our interview today. No acute distress. AOx3. Grossly normal alignment of the LLE w/o any significant swelling. 5/5 strength with DF, PF, EHL bilaterally. Gross sensation intact throughout bilateral lower extremities. Calves soft and non-tender bilaterally. SCDs are on and functioning. Brisk capillary refill, pulses intact. Post-surgical Aquacel dressing clean, dry and intact over the left hip without drainage. Objective Labs 06/27/24 05:42 Labs: Laboratory Results - last 24 hr 06/27/24 06/27/24 00:12 05:42 Hgb 11.6 L Hct 33.5 L Urine Color Yellow Urine Appearance Clear Urine pH 5.5 Ur Specific [place] 1.010 Urine Protein Negative Urine Glucose (UA) Negative Urine Ketones Negative Urine Occult Blood Trace-intact Urine Nitrate Negative Urine Bilirubin Negative Urine Urobilinogen 0.2 Ur Leukocyte Esterase Negative Urine RBC None seen Urine WBC None seen Ur Squamous Epith Cells None seen Urine Bacteria None seen Ur Culture Indicated? Cult not indicated Vol Urine Centrifuged 10ml (spun) [facility] Medical History (Updated 05/05/24 @ 09:56 by Rose Weinberg PA-C) COVID Facet arthropathy, lumbar Lumbosacral radiculopathy at L5 Insomnia Obstructive sleep apnea of adult Pituitary adenoma (11/10/14) Chronic major depressive disorder Mixed hyperlipidemia Acquired hypothyroidism Surgical History (Updated 06/19/24 @ 09:07 by Meg Rivers RN) Status post eye surgery Status post eye surgery (1979) Family History Child Age: 45 Mental health problem Father Age: 101 Cancer Heart disease Grandfather Age: 66 Colon cancer Grandmother Age: 89 Diabetes mellitus Mother Lung cancer Diabetes mellitus Heart disease Hypertension High cholesterol Mental health problem Stroke Sister Age: 75 Diabetes mellitus Social History (Updated 08/13/22 @ 09:35 by Radames Osborn MD) marital status: household members: spouse pets and animals: Yes education level: college seatbelt use: always helmet use: Yes water heater temp set < 120 deg: Yes working smoke detector in home: Yes carbon monox detector in home: Yes firearms in home: Yes firearms unloaded and locked: Yes Smoking Status: Never smoker alcohol intake: current substance use type: does not use during the past year weight has: remained stable well-balanced diet: daily or most days daily servings fruits/ve-4 caffeine: Yes (2+ caffeine drinks per day) eating out: rarely or never Discharge Assessment & Plan Assessment and Plan Assessment: Stable status post left total hip arthroplasty Plan of Treatment: 1) Plan to discharge to home today with . 2) Continue multimodal pain management with ice to the hip for additional pain control. 3) ASA b.i.d. for DVT prophylaxis. 4) Start outpatient physical therapy to work on range of motion and mobility. 5) Keep dressing intact, clean, dry until 2 week postop appointment. No soaking the incision site in pools or tubs. No topical ointments or creams to the incision site. 6) Follow up at [facility] orthopedics in 2 weeks for a postop appointment and wound check. All patient's questions were answered, they demonstrates understanding and are in agreement with the plan. Call our office if any questions or concerns arise. Discharge Plan Discharge Plan Patient Disposition: Home Provider Discharge Comment: Detailed postoperative instructions available at [email or web address] Discharge orders & Medications Discharge Orders: Discharge (Order); Ordered 06/27/24 Ordered By: Kymberly Light Prescriptions: New ondansetron 4 mg tablet,disintegrating 4 mg PO Q8H PRN (Reason: nausea and vomiting) Qty: 10 0RF oxycodone 5 mg Tablet 5 mg PO Q6HR PRN (Reason: Mild or moderate pain) Qty: 30 0RF meloxicam 7.5 mg Tablet 7.5 mg PO QD-BID PRN (Reason: pain) Qty: 30 0RF aspirin 81 mg tablet,chewable 81 mg PO BID 28 Days Qty: 56 0RF pantoprazole 20 mg tablet,delayed release (DR/EC) 20 mg PO DAILY Qty: 60 0RF Continued escitalopram oxalate 10 mg tablet See Rx Instructions PO .COMPLEX Qty: 200 3RF Rx Instructions: 2 tabs by mouth 4 days per week, 3 tabs by mouth 3 days per week orally; cabergoline 0.5 mg tablet 0.5 mg PO 2XW atorvastatin [Lipitor] 20 mg tablet See Rx Instructions PO .COMPLEX Qty: 90 3RF Rx Instructions: 10mg 4 days a week, 20mg all other days orally; levothyroxine 125 mcg tablet 125 mcg PO DAILY Qty: 90 3RF tamsulosin 0.4 mg capsule 0.4 mg PO DAILY Qty: 90 3RF acetaminophen 500 mg tablet 1,000 mg PO Q8H PRN (Reason: pain) cholecalciferol (vitamin D3) 50 mcg (2,000 unit) capsule 100 mcg PO DAILY (DME) ResMed AirSense 10 CPAP Qty: 1 Dose Instruction: As directed Patient Comments: Pressure: 6-12 cmH2O DME: [employer] Rx Instructions: As directed Follow up/Referrals: Radames Osborn MD [Primary Care Provider] - Chavez Pool MD [Physician] - (Follow up at [facility] as scheduled in 2 weeks. ) Diet/Activity/Treatments Diet: Diet as Tolerated Activity: Weightbearing as tolerated, maintain anterior hip precautions. Work w/ outpatient physcial therapy, Cold/Heat Therapy: Ice to the hip for additional pain control Skin/Wound/Dressing Care Report to your healthcare provider any signs of infection, such as:: chills, fever, night sweats, unusual drainage and unusual redness Dressing: Keep dressing intact, clean and dry until 2 week post-op appointment. No soaking the incision site in pools or tubs. No topical ointments or creams to the incision site. Visit Report/Discharge Packet Instructions: DI for Hip Replacement Stand Alone Forms: Patient Portal/API Discharge Data Primary Care Provider: Radames Osborn Attending Provider: Chavez Pool
--- NOTE | 2024-06-27 12:09 | CM.DANOTE ---
B DCP Assessment note Pt is a 74yo M POD1 from elective left total hip with Dr. Yrn Osborn Payer medicare and liborio [employer] reviewed EMR. per PT eval, rec home with assistance. Per chart, pt lives in [place] with spouse Jarred. has a walker for home, and did stairs with AIRCRAFT SHIPPING CHECKER. already has post op OP PT scheduled. Per ortho dc sum, pt eager to dc home. P: no identified barriers to safe dc home with spouse support and close OP f/u identified at his time. CM team will continue to follow as needed MIRANAD Valdivia Discharge Planning/Care Management CM Discharge Assessment Start: 06/27/24 12:07 Freq: Status: Active Protocol: Document 06/27/24 12:08 SL (Rec: 06/27/24 12:09 [id number]) Discharge Planning Assessment Assigned Talent Acquisition Sourcer MIRANDA Jc DPOA/Assigned Designee Name Jarred, spouse Contact Information [phone] Advance Directives? Yes Advance Directives on File No History Provided By Patient Prior Living Arrangements House Household Members spouse Independent with ADL's Yes Is patient alert and oriented? Yes DME Already Rented / Owned FWW / Walker Patient/Family Preference OP PT Therapy Barriers to Discharge No Discharge Plan Home Referrals Initiated None needed Review Status In Process Please Provide Date Initial DC 06/27/24 Assessment Was Performed Next Review Type Continued Stay Review Pre-Anesthesia Assessment Start: 06/19/24 08:18 Freq: Status: Active Protocol: Document 06/19/24 08:18 LB (Rec: 06/19/24 08:36 LB [id number]) Pre-Anesthesia Assessment PAC Comment 06/19/24 Phone assessment. Preferred Name Naga Patient Information Reviewed Via Phone Assessment Assessment Completed With Patient Diagnostic Results BMP/CMP,CBC,EKG Comment 04/30/24 at . Primary Care Provider Radames Osborn Seen Specialist in Last 12 Months Yes Specialist Seen Orthopedist Primary Language Armenian Preferred Language Armenian Customer Accounts Advisor Required No Height 177.8 cm Weight 88.451 kg Body Mass Index (BMI) 27.9 Hearing Ability Hearing Impaired Visual Assist Glasses Dentition Type Teeth, Natural Present Barriers to Learning None Comment glassess as needed for reading . Hx Anesthesia Reactions No: Trouble waking up. Hx Family Anesthesia Reaction No Hx Malignant Hyperthermia No Hx Blood Transfusions No Anesthesia Review Requested No Bilingual Patient Support Caseworker No alcohol intake current alcohol intake frequency 0-2 drinks per day Smoking Status Never smoker Substance Use Type does not use Pain Present Pain Reported Comment Left hip. Musculoskeletal Symptoms Difficulty Walking,Joint Pain, Radiating Pain into Limb History of Falling (Recent or History of No ) Patient is completely paralyzed or No completely immobile Prosthesis or Orthotic Device Cane,Front Wheel Walker Mental Status Oriented to own ability Comment Pt will bring walker. Is patient on oxygen? No Does patient have BRICEÑO/SOB No Hx Sleep Apnea Yes CPAP/BIPAP use prescribed and used routinely Will Bring CPAP/BIPAP DOS Yes Currently Taking a Beta Mamta No Can You Climb a Flight of Stairs Without Yes SOB Hx Chest Pain No Hx SOB No Hx Syncope or Dizziness No Anti-Coagulant Therapy No Has a Dial Buffer No Cardiac Testing No Hx Pacemaker/ICD No Dysphagia No Gastrointestinal Symptoms Constipation,Retching Bladder Pattern Nocturia,Urgency Diabetes No HgbA1C 5.3 Date 04/30/24 Hx Drug Resistant Organism No Presence of External or Internal Medical No Devices Have you had any close contact with No someone diagnosed with COVID-19? Are you experiencing any of these No symptoms symptoms? Received a COVID vaccine? Yes Marital Status Lives With spouse,family Current Living Arrangements House Number of Floors (Floors) 3 or More Floors Number of Stairs To Enter/Railing? One floor living with no stairs, has ramp. Support System Spouse Does the Patient Have Assistance After Yes Surgery Patient Discharge Plan Description Return Home Additional comment Advised same day surgery. Emergency Contact Name Jarred Park - Emergency Contact Advance Directives? Yes Advance Directives on File No Requested Patient Bring Advanced Yes Directives DOS Power of Systems Analyst Engineer Yes Power of Systems Analyst Engineer Name Jarred Park - jia Power of Systems Analyst Engineer PAC Instructions Assistance for 24 hours post- op,Bring CPAP/BIPAP,Durable medical equipment,Medications to take/avoid,No ETOH/ petroleum product on skin DOS, NPO,Post-op transportation,Pre -surgical wash,Sensory aids, Sturdy shoes/comfortable clothes,Do not bring valuables and remove jewelry
== END 2024-06-27 12:20 | disposition home or self-care (01) ==
LOC: OR 09:04 → AC 09:04
PROVIDERS: PCP Family Medicine; Referring Provider Orthopaedic Surgery Adult Reconstructive Orthopaedic Surgery; Visit Provider Orthopaedic Surgery Adult Reconstructive Orthopaedic Surgery
PROC: (CPT 27130; principal; 2024-06-26 10:45)
DX: M16.12 Unilateral primary osteoarthritis, left hip (principal); M25.752 Osteophyte, left hip
CPT/HCPCS: 27130; 36415; 73502; 76000; 81001; 85014; 85018; 97116; 97162; 97530; C1776; J0690; J1100; J1171; J2405; J2704

== ENCOUNTER → 2025-03-02 08:16 | Outpatient (CLI) | payer MEDICARE, OTHER, SELFPAY ==
[2024-06-26 16:08] VITALS: BMI 27.9
[2025-03-02 10:34] LABS: Prolactin 44.5 ng/mL (3.7-17.9)
[2025-03-02 10:48] LABS: Thyroid Stimulating Hormone 0.588 uIU/mL (0.47-4.68)
== END ==
PROVIDERS: PCP Family Medicine; Referring Provider Internal Medicine Endocrinology, Diabetes & Metabolism; Visit Provider Internal Medicine Endocrinology, Diabetes & Metabolism
DX: D35.2 Benign neoplasm of pituitary gland (principal); E03.9 Hypothyroidism, unspecified
CPT/HCPCS: 36415; 84146; 84443

== ENCOUNTER → 2025-05-14 09:13 | Outpatient (CLI) | payer MEDICARE, OTHER, SELFPAY ==
[2025-04-12 15:59] VITALS: BMI 27.9
--- NOTE | 2025-05-14 09:25 | EKG_ITS ---
Merged With [facility] [address] [place] [address] Test Date: 2025-05-14 Pat Name: Jesse Tang Department: Merged With [facility] Room: Gender: Male Forest Ranger Technician: : 1950 Requested By: Order Number: [id number] Reading MD: Aston Luna Measurements Intervals Melvin Rate: 55 P: 34 AL: 180 QRS: 13 QRSD: 86 T: 30 QT: 408 QTc: 390 Interpretive Statements Sinus bradycardia Electronically Signed On 05-17-2025 16:45:25 PDT by Aston Luna
== END ==
PROVIDERS: PCP Family Medicine; Referring Provider Orthopaedic Surgery Adult Reconstructive Orthopaedic Surgery; Visit Provider Orthopaedic Surgery Adult Reconstructive Orthopaedic Surgery
DX: Z01.818 Encounter for other preprocedural examination (principal)
CPT/HCPCS: 93005

== ENCOUNTER 2025-06-21 10:44 | Day surgery (SDC) | payer MEDICARE, OTHER, SELFPAY ==
[2025-04-12 15:59] VITALS: BMI 27.9
[2025-06-14 09:18] VITALS: BMI 28.4
[2025-06-21] VITALS (15 sets, daily range): BP systolic 98–139; BP diastolic 50–78; PULSE 57–69; RESP 13–21; TEMP 35.7–36.6; O2SAT 93–98; BMI 28.4
--- NOTE | 2025-06-21 | DI.RAD.S_ITS ---
PROCEDURE: XR HIP W PEL IF DONE RT 2V INDICATIONS: RT ANTERIOR HIP TECHNIQUE: AP pelvis and lateral view of the hip acquired. COMPARISON: [facility], [place], XR HIP W PEL RT 2V, 06/21/2025, 14:21. [facility], [place], XR HIP W PEL IF DONE LT 2V, 06/26/2024, 12:40. FINDINGS: Bones: Patient is status post new right hip arthroplasty, with hardware components in expected positions. The hip joint appears congruent. Previous left hip arthroplasty has normal alignment. The visualized bony structures appear intact. Soft tissues: Overlying postoperative changes are noted. No suspicious soft tissue densities. IMPRESSION: New right hip arthroplasty with normal alignment. Expected post-operative appearance of a hip arthroplasty. Normal alignment of the previously noted left hip arthroplasty. Dictated by: Rakel Luna M.D. on 06/22/2025 at 8:46 Approved by: Rakel Luna M.D. on 06/22/2025 at 8:47
--- NOTE | 2025-06-21 07:44 | DI.RAD.S_ITS ---
PROCEDURE: XR HIP W PEL IF DONE RT 2V INDICATIONS: implant positioning TECHNIQUE: Three spot fluoroscopic images of the hips. COMPARISON: [facility], [place], ORTHO-XR HIP RT 2V, 04/20/2025, 9:33. FINDINGS: Multiple spot fluoroscopic intraoperative images are seen related to placement of a right total hip arthroplasty. One image of the left hip arthroplasty is also included. IMPRESSION: Fluoroscopy was used for intraprocedural guidance. Approved by: Konstantin Cross M.D. on 06/21/2025 at 16:01
[2025-06-21] MEDS: ACETAMINOPHEN 325 MG TABLET 975 MG PO (11:07)
[2025-06-21] MEDS: LACTATED RINGERS 1,000 ML 42 ML IV (11:08)
--- NOTE | 2025-06-21 11:56 | PM.PREOP ---
Pre-operative Note Interval Note History & Physical reviewed/Exam performed by Physician: Yes Changes to H&P: No
[2025-06-21] MEDS: TRANEXAMIC ACID 1,000 MG VIAL 1000 MG INJ ×2 (13:20→15:05)
--- NOTE | 2025-06-21 13:54 | SUR.OPER ---
Supine on padded Healy table with bilateral legs secured in padded positioning boots and suspended in positioning spars, operative leg in traction per surgeon. Head on one pillow. Arm on non-operative side secured on padded armboard <90 degrees abduction. Arm on operative side padded and resting across chest then secured with tape over sheet. Padded perineal post in place per surgeon.
[2025-06-21] MEDS: KETOROLAC 30 MG/ML VIAL 15 MG INJ (14:06)
[2025-06-21] MEDS: LACTATED RINGERS 1,000 ML 120 ML IV (14:11)
--- NOTE | 2025-06-21 15:04 | P.OP_ITS ---
Operative Date/Time/Diagnoses Date of procedure: 06/21/25 Time of procedure: 14:00 Pre-op diagnosis: Right hip osteoarthritis Post-op diagnosis: same Procedure & Clinicians Procedure: Right total hip arthroplasty Same procedure(s) as scheduled: Yes Surgeon: Chavez Pool Assisted?: Yes Surg Physician Asst: Kymberly Light Anesthesia Type: Spinal, Sedation and Local Operative Notes Findings: Severe right hip arthritis Applied: none Estimated Blood Loss (mL): 250 Procedure in detail: 1. Right Uncemented Direct Anterior Melody Total Hip Arthroplasty (19830) 2. Computer-Assisted Musculoskeletal Surgical Navigational Orthopedic Procedure Using Fluoroscopic Image Guidance (0054T) Implants: * G7 PPS size 58 cup? * Z1 femoral stem size 7 high offset? * 40 mm +0 ceramic femoral head? Procedure Summary: This 75-year-old male patient had previously undergone a contralateral total hip arthroplasty with me. I had used a Actis stem for that one and used a Z1 stem for today's surgery. He had not required a conjoined tendon release for femoral access on the contralateral side and did not require 1 for femoral access on this side either. I used the same size cup as I had on last 1 and during initial trials utilized a standard offset stem. The ortho grid overlay indicated that there was significantly less offset than the other side and it appeared to be less than the preoperative offset as well. I therefore utilized a high offset stem for final implants. Stability was excellent with all trials and the hip required traction through the fracture table from the table [employer] assistant principal in order to reduce the hip. Procedure in Detail: This patient was seen preoperatively and evaluated for hip pain which was refractory to numerous nonoperative treatment modalities. Their hip pain correlated with radiographic changes demonstrating significant degeneration in the hip joint. The risks and benefits of continued nonoperative management versus operative management were discussed at length and all of the patient?s questions were answered. Additional educational materials providing further details beyond our discussion in clinic were provided via a publicly available patient education video which included the incidence of medical complications associated with total hip arthroplasty, reasons for revision following total hip arthroplasty, and patient satisfaction rates following total hip arthroplasty. With this understanding of the risks inherent to the procedure, the patient elected to move forward with operative management. Following preoperative optimization, the patient was scheduled for surgery. The patient was met in the preoperative holding area the day of the procedure and all questions were answered. The patient?s nares were swabbed in order to decolonize them from MRSA. Informed consent was signed and the right limb was marked with indelible ink.? The patient was brought back to the operating room where anesthesia was induced. The patient was transferred to the [place] table and all bony prominences were padded. The operative site was prepped and draped in the usual sterile fashion. Prior to incision, tranexamic acid and cefazolin were administered. Operative templating images were displayed demonstrating the anticipated implant sizes and correct operative extremity. A timeout procedure was performed verifying the patient?s identity, medical comorbidities, allergies, relevant medications, anesthesia type and the surgical plan. All present were in agreement. The assistance of a physician high school assistant principal was required for positioning, room setup, soft tissue retraction and wound closure. Without this assistance, the procedure would have been significantly more challenging and time consuming.?? A direct anterior approach to the hip was utilized. This was performed with a longitudinal incision through a Heuter interval. The incision was planned 2 cm distal and 2 cm lateral to the ASIS extending towards the lateral patella, in line with the muscle body of the TFL. Following incision, the subcutaneous tissue was dissected while taking care to avoid injury to the lateral femoral cutaneous nerve. The fascia overlying the TFL was identified by dissecting off the overlying fat and identifying perforating vessels to the TFL. The TFL fascia was incised and dissected away from the medial border of the TFL. A retractor was placed over the superior femoral neck between the abductors and the hip capsule and used to reflect the TFL laterally. A [place] self-retainer was then placed in the distal aspect of the wound between the TFL and the rectus femoris. This was tensioned to open up the direct anterior interval and the lateral circumflex vessels were identified and coagulated using electrocautery. The floor of the TFL fascia was incised, exposing the pericapsular fat overlying the hip capsule. A second cobra retractor was placed on the inferior femoral neck. A retractor was placed on the anterior wall of the acetabulum and used to tension the reflected head of rectus femoris, which was then released in order to limit soft tissue tension. A capsulotomy was made in the midline of the anterior hip capsule in line with the femoral neck ending at the vastus tubercle. The anterior retractor was removed as soon as the capsulotomy was completed in order to limit the amount of time that a soft tissue retractor remained on the anterior wall and limit tension on the femoral nerve. Tag stitches were placed in the superior and inferior leaflets of the hip capsule. An Marcos soft tissue retractor was introduced over the tag stitches and tensioned in the interval between the rectus femoris and the TFL in order to retract and protect those muscles. The cobra retractors were replaced intracapsularly, with one over the superior neck in the pocket created by the base of the greater trochanter and the other on the femoral head. The capsulotomy was extended laterally to the base of the greater trochanter and medially to the lesser trochanter. This required externally rotating the hip. Once the lesser trochanter had been identified, a neck cut was planned according to measurements from preoperative templating. A ruler was cut at the length measured between the superior aspect of the lesser trochanter and the collar of the prosthesis. This line was extended towards the inferior aspect of the lateral cobra retractor to plan a cut which would leave minimal residual femoral neck laterally. The neck was cut at 60 degrees of external rotation along that line. A second cut was performed to remove a large napkin ring and facilitate head extraction. The napkin ring cut and femoral head were removed.?? A broad anterior wall retractor was placed between the labrum and the anterior capsule so that the anterior capsule would prevent capturing and pinching the femoral nerve anteriorly. An additional retractor was placed on the posterior wall. External rotation and traction were applied through the [place] table so that the cut surface of the femoral neck would not restrict access to the acetabulum. The labrum was excised sharply and the pulvinar was excised with electrocautery to limit bleeding from branches of the obturator artery. Acetabular reamers were selected based on preoperative templating and measurements of the excised femoral head. These were introduced into the acetabulum. Fluoroscopy was utilized to replicate a standing AP pelvis radiograph by centering over the pelvis, rotating until there was appropriate symmetry between the obturator foramen, and introducing caudal tilt to match the position of the pubic symphysis relative to the sacrococcygeal junction according to the patient?s anatomy. Once satisfied with the reaming depth corresponding to the preoperative template and the pinch fit between the columns, an appropriate sized acetabular cup was selected which would provide 1 mm of press-fit. This cup was introduced and manipulated until appropriate abduction and anteversion angles were obtained with careful attention to appropriate abduction and anteversion angles as evaluated by the position of the cup relative to the anterior and posterior edward of the acetabulum and the AP fluoroscopy which recreated the patient?s standing radiograph. The cup was impacted into place. Peripheral osteophytes were removed. The acetabular liner was then placed with care to ensure locking of the locking mechanism. Attention was then turned to the femur. All retractors were removed, traction was released, a retractor was placed in the interval between the hip capsule and the gluteus minimus. The lateral capsule was released using electrocautery. Traction was released and a [place] hook was placed posteriorly around the proximal femur at the level of the vastus ridge. The table height was lowered in order to restrict the tension on the anterior structures during hip hyperextension to limit the risk of femoral nerve palsy. With traction off and the hip at 90 degrees of external rotation, the hip was hyperextended and adducted while manually elevating the femur away from the acetabulum with the [place] hook to avoid hooking the greater trochanter on the pelvis. An asymmetric retractor was placed over the calcar and a broad double-pronged retractor was placed over the greater trochanter. The tag stitch capturing the lateral leaflet of the capsule was moved to the medial side, leaving the conjoined and piriformis tendons isolated in the face of the greater trochanter. The hip was externally rotated and elevated. A release of the conjoined tendon was not necessary in order to obtain adequate exposure for broaching. The canal was opened with an opening broach and a rasp was used to remove cancellous bone. A rongeur was used to remove the residual lateral bone at the base of the greater trochanter to avoid placing the stem in varus. The femur was then broached to the appropriate sized stem yielding good rotational fit and fill of the canal as well as appropriate version of the stem trial. Neck and head trials were placed, all retractors were removed and the hip was returned to neutral abduction and extension. I then reduced the hip and manually trialed it before changing surgical gloves. Initial trialing was performed with a size 7 broach, a standard offset neck and a +0 head. I initially manually externally rotated the hip and found that I was unable to manually dislocate the hip. I then locked the hip in 45 degrees of external rotation and dropped it to the floor with traction off which demonstrated no instability. An ortho grid overlay of the contralateral side on the operative side was obtained which demonstrated equal leg lengths and decreased offset. I had known coming into the case that the offset on the contralateral side was greater than on the operative side but on the ortho grid images it appeared to also be less than what he had had preoperatively. AP and lateral hip fluoroscopic images were obtained to evaluate the broach size which demonstrated good canal fill. The hip was dislocated and I returned to the broaching position. Based on my evaluation during initial trialing I planned to upsized to a high offset stem without repeating stability trials as he had had good stability with the standard offset stem. The definitive stem was placed and the trunnion was cleaned and dried. I placed a ceramic head onto the trunnion and impacted it into place on the Steven taper.?? All retractors were removed and the hip was reduced. A dilute mixture of betadine and peroxide was used to bathe the soft tissues during final fluoroscopic assessment. Appropriate component positioning was confirmed on an AP pelvis radiograph with the operative and nonoperative legs in 40 degrees of external rotation, evaluating leg length and offset. Appropriate stem fill was evaluated on AP and lateral hip radiographs. No previously unrecognized frac tures were identified on these radiographs. There was no hip instability with maximum (80?) external rotation as well as a 45 degree drop test. The hip was copiously irrigated with pulse lavage. The capsule was closed with absorbable interrupted suture. The TFL fascia was closed with barbed suture while carefully protecting the lateral femoral cutaneous nerve from entrapment. A mixture of Ropivacaine, Epinephrine and Toradol was infiltrated throughout the soft tissues. The skin was closed with 2-0 and 3-0 sutures. Surgical glue was applied and a soft dressing was placed.??The sponge, instrument and needle counts were reported as being correct at the end of the case.??No obvious complications occurred. The patient was transferred from the [place] table back to a stretcher. The patient emerged from anesthesia without difficulty and was taken to the PACU in a stable condition.? Plan for aftercare: * No hip precautions * Weightbearing as tolerated * Aspirin 81 twice per day for DVT prophylaxis * Anticipate discharge home tomorrow * Multimodal pain regimen with no IV opioids ordered * Follow up at [facility] in 2 weeks Complications: none Post-operative Condition: stable Disposition: PACU
[2025-06-21] MEDS: MELOXICAM 7.5 MG TABLET PO (18:34)
[2025-06-21] MEDS: LACTATED RINGERS 1,000 ML 100 ML IV (18:34)
[2025-06-21] MEDS: DOCUSATE 100 MG CAPSULE PO (21:08)
[2025-06-21] MEDS: ACETAMINOPHEN 325 MG TABLET 650 MG PO (21:09)
[2025-06-21] MEDS: ASPIRIN EC 81 MG TABLET PO (21:09)
[2025-06-22] MEDS: ACETAMINOPHEN 325 MG TABLET 650 MG PO ×2 (02:04→08:33)
[2025-06-22] MEDS: LEVOTHYROXINE 125 MCG TABLET PO (05:20)
--- NOTE | 2025-06-22 07:20 | P.DS_ITS ---
History of Present Illness History of Present Illness Chief complaint: Right UMAIR anterior Narrative: 75 year old male with a past medical history of obstructive sleep apnea presented to [facility] on 06/21/25 for planned right anterior total hip arthroplasty by Dr. Pool. ?This elective procedure was indicated by chronic right hip arthritis limiting their normal activities of enjoyment and living. ?Prior to surgery he could only walk 1 mile due to right hip pain. He is status post left total hip arthroplasty by Dr Pool on 06/26/24 at [facility]. On the date of surgery there were no changes of the medical history, medications or allergies. ?Consent had been obtained and the patient was in agreement to proceed with planned surgery. Discharge Providers Provider Discharge Date: 06/22/25 Primary care physician: Radames Osborn MD Consults: 06/21/25 14:45 Consult to Discharge Planning Routine Comment: Consult to Occupational Therapy Evaluate & Treat Comment: Physician Instructions: Evaluate and treat Consult to Physical Therapy Evaluate & Treat Comment: Physician Instructions: Evaluate and Treat Discharge provider: NANCY Pablo Dr Summary Hospital Course Hospital Course: On 07/01/25 the patient was brought to the operating room for planned right anterior total hip arthroplasty by Dr Pool.? There were no known intraoperative complications.? The patient was transferred to the postoperative recovery area and monitored appropriately.? Later the patient was transferred to the acute care unit [facility] for monitoring overnight and physical therapy.? There were no acute events overnight.? On postoperative day 1, the patient's vital signs were stable and he was making urine spontaneously.? The patient denied chest pain, dyspnea, fever, chills, nausea and emesis on postoperative day 1.? The patient was awaiting physical therapy evaluation during orthopedic rounds.? Pain was well-controlled on oral analgesics including tylenol and oxycodone on one occasion. He refused ibuprofen overnight as he would prefer to start the meloxicam upon his return home and he wanted to avoid NSAID interactions. The patient was in agreement with preoperative plan to discharge home on postoperative day 1. Exam Vital Signs (past 8 hours): Oxygen Delivery Method Room Air Oxygen Flow Rate 0 Narrative Exam Narrative: Well developed, well nourished 75 year old male, no acute distress Patient lying supine in bed comfortably Grossly normal alignment of the right lower extremity Aquacell dressing to right hip is dry and intact without erythema or ecchymosis Neurovascular intact to the right lower extremity in the femoral and sciatic nerve distribution. 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) Status post eye surgery Status post eye surgery (1979) Family History Child Age: 46 Mental health problem Father Age: 102 Cancer Heart disease Grandfather Age: 67 Colon cancer Grandmother Age: 90 Diabetes mellitus Mother Lung cancer Diabetes mellitus Heart disease Hypertension High cholesterol Mental health problem Stroke Sister Age: 76 Diabetes mellitus Social History marital status: household members: spouse pets and animals: Yes education level: college seatbelt use: always helmet use: Yes water heater temp set < 120 deg: Yes working smoke detector in home: Yes carbon monox detector in home: Yes firearms in home: Yes firearms unloaded and locked: Yes Smoking Status: Never smoker alcohol intake: current substance use type: does not use during the past year weight has: remained stable well-balanced diet: daily or most days daily servings fruits/ve-4 caffeine: Yes (2+ caffeine drinks per day) eating out: rarely or never Discharge Assessment & Plan Assessment and Plan Plan of Treatment: 75 year old male with a past medical history of obstructive sleep apnea and hypothyroidism is post operative day 1 from a right total hip arthroplasty by Dr. Pool at [facility] on 06/21/25. The patient is recovering well with appropriate pain control on oral analgesics and is awaiting evaluation by physical therapy with plan for discharge home today.? Plan:? * Weightbearing as tolerated to right lower extremity with front wheeled walker? * No hip precautions? * DVT prophylaxis with 81 mg of aspirin twice daily for 6 weeks ? * Continue multimodal analgesia with Tylenol, meloxicam and oxycodone. Medications prescribed at pre-operative visit * Bowel regimen as needed? * Physical therapy evaluation and treatment today. Out patient physical therapy has been coordinated. * Follow up with orthopedics 2 weeks post operatively? * All post operative medications ordered at pre operative visit? * Ice to surgical site as needed? * Dressing to remain dry and intact to right hip until follow up with orthopedics Discharge Plan Discharge Plan Provider Discharge Comment: SURGICAL PROCEDURE: Right Total Hip Arthroplasty SURGEON: Dr. Pool at [facility] DATE: 06/21/25 ACTIVITY INSTRUCTIONS o You are weight bearing as tolerated to the right lower extremity with a front wheeled walker at all times. We encourage active movement of the toes and ankle every hour while awake to prevent stiffness. o You have no hip precautions o Limit your steps to no more than 1000 steps per day for the first week after surgery to limit swelling. o Do not drive while taking narcotic medications and recovering from your surgery. DRESSING CARE o You have an Aquacell dressing on top of your incision. This is a waterproof dressing and so you may shower with the dressing so long as the dressing remains clean and dry to the surgical site. Leave the dressing in place until your follow up in the orthopedic clinic. If the dressing becomes saturated or is disrupted call our office for further guidance. POST-OPERATIVE INSTRUCTIONS o If you notice fever, chills, night sweats, redness, excessive drainage or bleeding, a sharp increase in pain that persists after taking pain medication, pain in your calf muscles, chest pain or trouble breathing please unwrap the dressing and investigate. Then call the office with findings for further guidance. If it is after regular clinic hours, please seek care in the emergency department. o In the rare case of any severe chest pain and trouble breathing, seek immediate care, do not delay for a call to the clinic. o Use ice to the affected extremity for 15-30 minutes increments as much as possible. Use your ice machine as discussed in your pre-operative visit. o Keep extremity elevated to the level of the heart to reduce swelling. You can use ice on top of the dressing to reduce pain and swelling of the extremity. o You should consume a low sodium diet after surgery to limit swelling. You can gradually resume your normal diet if you have no nausea or vomiting o Physical therapy should begin about 7-10 days after surgery. Your first evaluation should already be scheduled. Call our office if you cannot schedule your therapy in the expected time frame. o Your follow up is already scheduled for 2 weeks after your surgery at the Orthopedic clinic on 07/08/25 at 9:30am. o You should have no dental procedures for 3 months following your total joint replacement. o Please refer to Dr. Pool?s educational videos on YouTube for a reference on your post operative care. o Call [facility] at [phone] with any questions or concerns. MEDICATIONS o Please refer to the ?Orthopedic Medication Instructions? sheet provided at your pre-operative visit. Written instructions are provided below as a reminder. - Take two pills of 500 mg Tylenol (acetaminophen) every 8 hours regardless of pain in a scheduled manner. Do not exceed 3000 mg of Tylenol (from ALL sources, including over the counter combination products) in a 24-hour period due to risk of liver injury. - Take one pill of oral meloxicam daily. This is NSAID (anti-inflammatory) medication to reduce swelling and pain. - Take one pill of 5 mg oxycodone by mouth every 6 hours as needed for break through pain after taking your regular Tylenol and anti-inflammatory. Oxycodone is an opioid, which means it is similar to morphine, heroin or fentanyl. Our goal is for you to take as little of this as possible because the side effects from it can be very severe. If you are able to get through your re covery process taking 10 pills or less please share your story with other patients by logging onto [email or web address] and sharing what strategies you used to avoid these dangerous medications. You can also read other patients? stories on that website to get strategies that go above and beyond what we have discussed to help you manage this pain while avoiding opioids. - Take 200 mg of Colace by mouth every 12 hours for constipation. Narcotic medications such as oxycodone and tramadol as well as anesthesia may increase your risk of constipation after surgery. - Take 4 mg of Zofran by mouth every 6 hours as needed for uncontrolled nausea or vomiting. If you have persistent nausea and vomiting call our office or seek care in the emergency department. - Take one pill of 81 mg of aspirin two times daily 12 hours apart for 6 weeks for blood clot prevention. Take this medication regardless of pain. - Take a proton pump inhibitor such as Pantoprazole or Omeprazole if you have a history of acid reflux or are noticing stomach irritation. NSAIDs and aspirin can both cause stomach irritation and that medication can help avoid stomach issues. - If you stopped taking a ?biologic? medication that you normally take for an issue such as rheumatoid arthritis or psoriasis prior to surgery, do not restart it until we have seen you back in clinic and confirmed that your wound is healed. - Resume all of your normal home medications tomorrow morning unless specified otherwise by your surgeon. Discharge orders & Medications Discharge Orders: Discharge (Order); Ordered 06/22/25 Ordered By: Kaylah Quiñonez Prescriptions: No Action tamsulosin 0.4 mg capsule 0.4 mg PO DAILY Qty: 90 3RF escitalopram oxalate 10 mg tablet See Rx Instructions PO .COMPLEX Qty: 200 3RF Rx Instructions: 2 tabs by mouth 4 days per week, 3 tabs by mouth 3 days per week orally; levothyroxine 125 mcg tablet 125 mcg PO DAILY Qty: 90 3RF atorvastatin 20 mg tablet 20 mg PO .COMPLEX Qty: 90 1RF Rx Instructions: 20 mg orally 1/2 tab by mouth 4 days per week, 1 tab 3 days per week; cabergoline 0.5 mg tablet 0.5 mg PO 2XW cholecalciferol (vitamin D3) 50 mcg (2,000 unit) capsule 100 mcg PO DAILY meloxicam 15 mg tablet 15 mg PO DAILY PRN (Reason: pain) Qty: 30 1RF acetaminophen 500 mg tablet 1,000 mg PO Q8H PRN (Reason: pain) Qty: 90 0RF docusate sodium [Colace] 100 mg capsule 100 mg PO BID PRN (Reason: constipation) Qty: 60 0RF ondansetron 4 mg tablet,disintegrating 4 mg PO Q8H PRN (Reason: nausea and vomiting) Qty: 7 0RF (DME) ResMed AirSense 10 CPAP Qty: 1 Dose Instruction: As directed Patient Comments: Pressure: 6-12 cmH2O DME: [employer] Rx Instructions: As directed Follow up/Referrals: Radames Osborn MD [Primary Care Provider, Family Practice] Skin/Wound/Dressing Care Report to your healthcare provider any signs of infection, such as:: chills, fever, night sweats, unusual drainage and unusual redness Visit Report/Discharge Packet Instructions: DI for Hip Replacement Stand Alone Forms: Surgery Discharge Print Language: Zimbabwean Discharge Data Primary Care Provider: Radames Osborn Attending Provider: Chavez Pool PROFEE Charge Codes Discharge inpatient/observation: [id number]
[2025-06-22] MEDS: ASPIRIN EC 81 MG TABLET PO (08:33)
[2025-06-22] MEDS: DOCUSATE 100 MG CAPSULE PO (08:34)
--- NOTE | 2025-06-22 10:00 | OT.IP.EVAL ---
Current Diagnoses Unilateral primary osteoarthritis, right hip (06/21/25) Surgery Performed Operation Date: 06/21/25 13:00 Actual Procedures p Total Hip Arthroplasty/Anterior Approach(Right) - Chavez Pool MD Past Medical History (Last Updated 06/14/25 @ 14:21 by Camryn Mayen, RN) Acquired hypothyroidism Anesthesia complication Chronic major depressive disorder COVID (08/2023) Facet arthropathy, lumbar Hyperprolactinemia Insomnia Lumbosacral radiculopathy at L5 Mixed hyperlipidemia Obstructive sleep apnea of adult Pituitary adenoma (11/10/14) Surgical History (Last Updated 06/14/25 @ 09:24 by Camryn Mayen, FLACA) History of total left hip replacement (06/26/24) Status post eye surgery (1979) Status post eye surgery Occupational Therapy Inpatient Evaluation/Re-Eval M1 PT/OT-IP Prior Functional Status Start: 06/22/25 10:03 Freq: NEEDED Status: Active Protocol: Document 06/22/25 10:03 [facility] (Rec: 06/22/25 10:13 [facility] Desktop) Medical Review Prior Functional Status Communication I Activities of Daily Able to do ADL needs. Living and IADL's Social History Household Members spouse Living Arrangements House Number of Floors ( Two Floors Floors) Number of Stairs To Pt has a ramp to enter and able to stay on the main Enter/Railing? floor. Home Environment High Toilet,Walk in Shower,Built-In Shower Seat Home Equipment Front Wheel Walker,Hand Held Shower,Long Handled Shoe Horn,Tow Motor Driver,Sock Aid,Grab Bars In Shower Additional Social Pt had L UMAIR Anterior hip done 06/26/24. History Comment Pt has a toilet safety frame at home. M2 OT-IP Current Condition Start: 06/22/25 10:03 Freq: Status: Active Protocol: Document 06/22/25 10:03 [facility] (Rec: 06/22/25 10:13 [facility] Desktop) Occupational Therapy Current Condition Current Condition Evaluation Date 06/22/25 Treatment Diagnosis S/P R UMAIR Diagnosis Onset Date 06/21/25 Weight Bearing Status Weight Bearing Weight Bear as Tolerated Status M3 OT- IP Subjective and Pain Start: 06/22/25 10:03 Freq: Status: Active Protocol: Document 06/22/25 10:03 [facility] (Rec: 06/22/25 10:13 [facility] Desktop) OT- Subjective Occupational Therapy Visit Type Type Initial Evaluation Visit Start Time 09:40 Visit Stop Time 10:00 Occupational Therapy Visit Comments Patient Comments Pt agreed to do oral care needs and get dressed. Patient/Caregiver TO go home. Goals OT Pain Assessment Pain When Pain Assessed At Rest Pain Present Pain Present Pain Reported Location Right Hip Intensity 6 Scale Used Numeric (0 - 10) M4 OT- IP ADL's Start: 06/22/25 10:03 Freq: Status: Active Protocol: Document 06/22/25 10:03 [facility] (Rec: 06/22/25 10:13 [facility] Desktop) OT [id number] General Evaluation Self-Feeding Ability Independent OT ADL-Grooming General Evaluation Grooming Ability Independent Comments OT Grooming Comments While standing with FWW in front of the sink. OT ADL-Oral Care General Eval Oral Care Ability Independent OT ADL-Dressing General Eval Upper Body Dressing Independent Ability Lower Body Dressing Standby Assistance Ability Areas Needing Retrieving/Set-up of Clothing Assistance Comments OT Dressing Comments Pt able to use transition nurse for LB dressing needs. VC to dress his RLE first and take out last. OT ADL-Toileting General Evaluation Toileting Ability Independent Comments OT Toileting Pt usually sits to toilet. Comments OT ADL-Bathing Comments OT Bathing Comments Spoke of care of bandage for showering needs. M5 OT- IP IADL's Start: 06/22/25 10:03 Freq: Status: Active Protocol: Document 06/22/25 10:03 [facility] (Rec: 06/22/25 10:13 [facility] Desktop) OT-Instrumental Activities of Daily Living Home Safety Awareness Awareness of Need Good Awareness for Assistance at Home Ability to Problem Able to Problem Solve Solve Emergency Situations Meal Preparation Meal Preparation Pt's to assist as needed. Comments Dust Collector Dust Collector Pt's to assist as needed. Comments M6 OT- IP Functional Cognition Start: 06/22/25 10:03 Freq: Status: Active Protocol: Document 06/22/25 10:03 [facility] (Rec: 06/22/25 10:13 [facility] Desktop) Cognitive Factors Limiting Selfcare Function Cognitive Ability Level of Alertness Alert Patient Orientation Name,Age,Birthday,Month,Date,Year,Day of Week,Place, Situation Attention Span Capable of Focused Attention,Capable of Sustained Ability Attention Ability to Follow Able to Follow Multi-Step Commands Commands Cognitive Comments Cognitive Assessment PT intact, just needing initial vc to push up from Comments surfaces with his hands. OT- Vision and Hearing OT- Hearing Assessment OT- Hearing WFL Assessment OT- Vision Assessment Visual Acuity Glasses All The Time Visual Attentiveness WFL Occular Pursuits WFL Vision Assessment Pt states able to see well enough without his glasses, Comments but wears them to drive. M7 OT- IP Mobility and Balance Start: 06/22/25 10:03 Freq: Status: Active Protocol: Document 06/22/25 10:03 [facility] (Rec: 06/22/25 10:13 [facility] Desktop) OT-Transfer Assessment Sit to and From Stand Sit to and from Standby Assistance Stand Transfers Transfer Ability Standby Assistance Technique Transfer Destination Chair,Toilet Transfer Technique Stand Step Pivot Devices Transfer Assistive Gait Belt Devices Comments Mobility Comments SBA for mobility of transfers from toilet to recliner with FWW. OT- Balance Assessment Sitting Balance and Reactions Static Sitting Normal Balance Ability Dynamic Sitting Normal Balance Ability Standing Balance and Reactions Static Standing Good Balance Ability Dynamic Standing Fair Balance Ability M8 OT- IP Objective Assessments Start: 06/22/25 10:03 Freq: Status: Active Protocol: Document 06/22/25 10:03 [facility] (Rec: 06/22/25 10:13 [facility] Desktop) OT Gross Range of Motion Upper Extremity Range of Motion ROM Impairments WFL for dressing needs. OT Strength Comments Strength Comments WFL for needs. M9 OT- IP Assessment and Plan Start: 06/22/25 10:03 Freq: Status: Active Protocol: Document 06/22/25 10:03 [facility] (Rec: 06/22/25 10:13 [facility] Desktop) OT Summary Assessment and Plan Potential Rehabilitation Excellent Potential Analytic Complexity Low at Evaluation Summary OT Impairments Pain,Balance,Functional Mobility,Bathing,Shower Transfers Progress Towards Progressing Toward Goals Goals Assessment Summary Pt low complexity, doing well , and has a supportive spouse to assist as needed. Pt has all OT equipment needs and FWW at home to use. Pt to go home with assist and go to outpt PT. Goals Bathing Goal Independent Shower Transfer Goal Independent Days to Meet Goals 2 Treatment Plan OT Treatment Plan ADL Training,Functional Mobility,Patient/Family Education,Discharge Planning Discharge Recommendations OT Discharge Home with Assistance,Outpatient PT Recommendations Transportation Needs Private Vehicle at Discharge
--- NOTE | 2025-06-22 10:25 | PT.IIE ---
Current Diagnoses Unilateral primary osteoarthritis, right hip (06/21/25) Surgery Performed Operation Date: 06/21/25 13:00 Actual Procedures p Total Hip Arthroplasty/Anterior Approach(Right) - Chavez Pool MD Surgical History (Last Updated 06/14/25 @ 09:24 by Camryn Mayen, RN) History of total left hip replacement (06/26/24) Status post eye surgery (1979) Status post eye surgery Medical History (Last Updated 06/14/25 @ 14:21 by Camryn Mayen RN) Acquired hypothyroidism Anesthesia complication Chronic major depressive disorder COVID (08/2023) Facet arthropathy, lumbar Hyperprolactinemia Insomnia Lumbosacral radiculopathy at L5 Mixed hyperlipidemia Obstructive sleep apnea of adult Pituitary adenoma (11/10/14) Physical Therapy Inpatient Evaluation/Re-Eval M1 PT/OT-IP Prior Functional Status Start: 06/22/25 10:03 Freq: NEEDED Status: Discharge Protocol: Document 06/22/25 10:03 [facility] (Rec: 06/22/25 10:13 [facility] Desktop) Medical Review Prior Functional Status Communication I Activities of Daily Able to do ADL needs. Living and IADL's Social History Household Members spouse Living Arrangements House Number of Floors ( Two Floors Floors) Number of Stairs To Pt has a ramp to enter and able to stay on the main Enter/Railing? floor. Home Environment High Toilet,Walk in Shower,Built-In Shower Seat Home Equipment Front Wheel Walker,Hand Held Shower,Long Handled Shoe Horn,Brake Liner,Sock Aid,Grab Bars In Shower Additional Social Pt had L UMAIR Anterior hip done 06/26/24. History Comment Pt has a toilet safety frame at home. M1 PT/OT-IP Prior Functional Status Start: 06/22/25 14:01 Freq: NEEDED Status: Active Protocol: Document 06/22/25 10:25 AB (Rec: 06/22/25 14:12 AB [id number]) Medical Review Prior Functional Status Medical History Yes Reviewed Communication able to make needs known Mobility and Gait pt stated that he was independent with all mobilities and ambulation without AD Activities of Daily per OT note: Able to do ADL needs. Living and IADL's Social History Household Members spouse Living Arrangements House Number of Floors ( Two Floors Floors) Number of Stairs To pt will stay on main level of the house Enter/Railing? has a ramp to enter the house Home Environment High Toilet,Walk in Shower,Built-In Shower Seat,Ramp Home Equipment Front Wheel Walker,Hand Held Shower,Brake Liner,Grab Bars Near Toilet,Grab Bars In Shower Additional Social pt has an adjustable bed History Comment M2 PT-IP Current Condition Start: 06/22/25 14:01 Freq: NEEDED Status: Active Protocol: Document 06/22/25 10:25 AB (Rec: 06/22/25 14:12 [id number]) Physical Therapy Current Condition Current Condition Evaluation Date 06/22/25 Treatment Diagnosis s/p R UMAIR anterior; difficulty in walking Onset Date 06/21/25 M3 PT-IP Subjective Start: 06/22/25 14:01 Freq: NEEDED Status: Active Protocol: Document 06/22/25 10:25 AB (Rec: 06/22/25 14:12 [id number]) Subjective Physical Therapy Visit Type Type Initial Evaluation Visit Start Time 10: Visit Stop Time 11:05 Number of EMERGENCY MEDICAL SERVICE MANAGER Visits 0 Physical Therapy Visit Comments Patient Comments agreeable to do PT Therapy Pain Assessment Pain When Pain Assessed At Rest Pain Present Pain Present Pain Reported Location Right Hip Intensity 5 Scale Used Numeric (0 - 10) Pain Behaviors Guarding,Holding Area Pain Management Apply Cold,Distraction,Modification of Treatment,Re- Techniques positioning,Timing of Activity with Medications M4 PT-IP Mobility and Gait Start: 06/22/25 14:01 Freq: NEEDED Status: Active Protocol: Document 06/22/25 10:25 AB (Rec: 06/22/25 14:12 [id number]) PT-Bed Mobility Assessment Supine to Sit Supine to Sit Standby Assistance Sit to Supine Sit to Supine Contact Guard Assistance,Minimal Assistance PT-Transfer Assessment Sit to and From Stand Sit to and from Standby Assistance,Contact Guard Assistance,Minimal Stand Assistance,1 Person Assistance,Use of Upper Extremities Equipment Transfer Assistive Gait Belt,Front Wheeled Walker Device Orthotic/Prosthetic No Devices or Brace: Transfers Transfer Destination Bed,Chair Transfer Technique ambulated Transfer Ability Level of Assist Standby Assistance,Contact Guard Assistance,1 Person Assistance,Use of Upper Extremities Comments Mobility Comments pt sitting on the chair and agreeable to do PT. obtained PLOF and home set up. sit to stand from chair CGA to min A and cues. pt increase lateral leaning and trunk rotation to the L during sit to stand. pt ambulated in room using FWW ~ 40 ft SBA to occasional CGA and cues for RLE steadiness. pt sat on EOB. completed sit to supine min A for RLE elevation. educated pt on sit<>supine techniques. pt completed bed mobility x 3 sets requiring SBA to CGA and cues. educated on sit<>stand techniques: pt completed x 5 reps requiring SBA to CGA. pt completed step transfer to chair using FWW SBA. completed sit <>stand from chair SBA. completed 3 reps. positioned pt on the chair. call light and table placed within reach. pt without further concerns. Gait Assessment Gait Gait Assistance Standby Assistance,Contact Guard Assist Required: Distance (Feet) 40 Able to Maintain Yes Weight Bearing Status During Gait Assistive Devices Assistive Device Gait Belt,Front Wheeled Walker Orthotic/Prosthetic No Devices or Brace: Gait Deviations General Gait Pattern Decreased Stride Length,Decreased Feet Clearance Factors Limiting Gait Function Factors Limiting Decreased Activity Tolerance,Decreased Strength,Limited Gait Function Range of Motion,Pain,Poor Balance,Poor Safety Awareness PT-Balance Assessment Sitting Balance and Reactions Static Sitting Normal Balance Ability Dynamic Sitting Good Balance Ability Standing Balance and Reactions Static Standing Good Balance Ability Dynamic Standing Fair Balance Ability Device Used FWW M5 PT-IP Objective Assessments Start: 06/22/25 14:01 Freq: NEEDED Status: Active Protocol: Document 06/22/25 10:25 AB (Rec: 06/22/25 14:12 [id number]) Orientation Orientation/Cognition Level of Alertness Alert Orientation Name,Place,Situation Language Function No Deficits Noted Ability Safety Awareness Decreased Safety Awareness Memory Description No Deficits Noted Gross Range of Motion Lower Extremity ROM Assessment Within Functional Limits Strength Lower Extremity Strength Assessment Right Impaired Hip 3-/5 Knee 4-/5 Sensation Assessment Sensation Gross Sensation WNL Muscle Tone Muscle Tone WNL Yes M6 PT-IP Treatment Start: 06/22/25 14:01 Freq: NEEDED Status: Active Protocol: Document 06/22/25 10:25 AB (Rec: 06/22/25 14:12 [id number]) Physical Therapy Treatment Education Education Provided Precautions,Weight Bearing Status,Post-Op Packet,Safety M7 PT-IP Assessment and Plan Start: 06/22/25 14:01 Freq: NEEDED Status: Active Protocol: Document 06/22/25 10:25 AB (Rec: 06/22/25 14:12 AB [id number]) PT Summary Assessment and Plan Potential Rehabilitation Good Potential Status of Condition Stable at Evaluation Summary Impairments Pain,ROM,Strength,Balance,Coordination,Sensation,Tone, Cognition,Bed Mobility,Transfers,Gait,Activity Tolerance Assessment Summary pt is a 75 y/o M s/p R UMAIR anterior POD 1. pt is WBAT on RLE. pt requiring SBA to CGA with mobilities using FWW for ambulation. pt plans to go home and spouse to assist him. pt has outpt PT set up. Goals Bed Mobility Goal Independent Transfer Goal Independent,Front Wheeled Walker Gait Goal Independent,Front Wheel Walker Gait Distance 150 Days to Meet Goals 5 Frequency of Treatment Frequency Of Twice a Day Treatment Treatment Plan Physical Therapy Bed Mobility Training,Transfer Training,Gait Training, Treatment Plan Therapeutic Exercise,Balance Retraining,Post Op Education,Discharge Planning,Hot or Cold Pack, Neuromuscular Re-ed,Coordination Retraining,Manual Therapy Weight Bearing Status Weight Bearing Weight Bear as Tolerated Status Allowed Weight RLE WBAT Bearing Amount ( enter % or #) (%) Recommendations To Nursing Amount of Assist 1 Person Assist Needed Discharge Recommendations PT Discharge Home with Assistance,Outpatient PT Recommendations Transportation Needs Private Vehicle at Discharge - PT assist 1
--- NOTE | 2025-06-22 11:36 | CM.DANOTE ---
DCP Assessment Note: Pt is a 75yo male, resident [facility], is admitted s/p R UMAIR. Pt lives in a house with his , Jarred. Pt's Primary Care Provider is Dr. Radames Osborn and insurance is Medicare and [employer]. Reviewed chart and discussed with multidisciplinary team pt's medical status and initial discharge needs. Per Ortho, pt cleared for discharge and orders are in. Per RN, no needs identified and pt will discharge with spouse. Plan: Anticipating dc home with spouse when medically cleared. CM team will follow closely for coordination of discharge plans. SAMIR Mendez Discharge Planning/Care Management Advanced directive,confirm from FACILITY Start: 06/21/25 19:03 Freq: Q24H Status: Active Protocol: Document 06/21/25 19:03 TD (Rec: 06/22/25 00:42 TD [id number]) Advance Directive, confirm on record Time 00:41 Person contacted Jarred () Copy received No CM Discharge Assessment Start: 06/21/25 10:55 Freq: Status: Active Protocol: Document 06/22/25 11:32 MW (Rec: 06/22/25 11:35 MW [id number]) Discharge Planning Assessment Assigned Discharge MIRANDA Espinoza Coating Mixer Provider Dr. Radames Osborn Insurance [employer],Medicare DPOA/Assigned Jeanine Park, Spouse Designee Name Contact Information [phone] Advance Directives? Yes Advance Directives No on File History Provided By Patient Prior Living House Arrangements Household Members spouse Type of Drives own vehicle transporation used prior to admit Independent with ADL Yes 's Is patient alert and Yes oriented? Patient/Family OP PT Therapy Preference Discharge Plan Home Referrals Initiated None needed Review Status In Process Please Provide Date 06/22/25 Initial DC Assessment Was Performed Next Review Type Continued Stay Review
--- NOTE | 2025-06-22 12:46 | PC.NURSE ---
Pt discharged home at 1137, escorted off floor in wheelchair accompanied by hospital staff. IV removed, discharge teaching completed including new medications, worsening symptoms and follow up appointments. Patient left the floor with all belongings.
== END 2025-06-22 11:45 | disposition home or self-care (01) ==
LOC: OR 10:46 → AC 10:46
PROVIDERS: PCP Family Medicine; Referring Provider Orthopaedic Surgery Adult Reconstructive Orthopaedic Surgery; Visit Provider Orthopaedic Surgery Adult Reconstructive Orthopaedic Surgery
PROC: (CPT 27130; principal; 2025-06-21 13:00)
DX: M16.11 Unilateral primary osteoarthritis, right hip (principal); M25.751 Osteophyte, right hip
CPT/HCPCS: 27130; 0054T; 73502; 76000; 97161; 97165; 97530; C1776; J0689; J1885; J2250; J2704; J3010; J7120